=== PATIENT | male | born 1970 | race Caucasian/White ===

== ENCOUNTER 2016-09-17 17:52 | Emergency (ER) | payer BC ==
[2016-09-17] MEDS ORDERED: Albuterol 0.083% 2.5 MG/3 ML Neb Soln NEB ONE (18:55)
[2016-09-17] MEDS ORDERED: cloNIDine 0.1 MG Tab PO ONE (18:55)
[2016-09-17] MEDS ORDERED: predniSONE 20 MG Tab PO ONE (18:56)
--- NOTE | 2016-09-17 18:57 | EDM.PDOC ---
ED HPI GENERAL MEDICAL PROBLEM - General Chief Complaint: Respiratory Problem Stated Complaint: COUGH AND BLOOD PRESSURE Time Seen by Provider: 09/17/16 18:50 Source of Information: Reports: Patient History Limitations: Reports: No Limitations - History of Present Illness INITIAL COMMENTS - FREE TEXT/NARRATIVE: Patient is a 46-year-old male presents ED complaining of cough for the past 5 days. States cough is nonproductive with intermittent wheezing. Cough worsens with laying flat. He does have some mild shortness of breath. Denies any sinus congestion or sore throat. Denies recent sick exposure. States she's been under a lot more stress recently. 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 Has a history of hypertension and takes 3 different medications. He has been poor with taking these meds. Upon admission to the ED patient has elevated blood pressure. Patient takes Cardizem, lisinopril, and metoprolol. - Related Data Allergies Allergy/AdvReac Type Severity Reaction Status Date / Time No Known Allergies Allergy Verified 09/17/16 18:05 Home Meds: Home Meds Albuterol [IJD: Albuterol HFA] 1 puff .XX Q4HR PRN #8 gm 09/17/16 [Rx] Azithromycin [Zithromax] 250 mg PO DAILY #6 tablet 09/17/16 [Rx] Diltiazem HCl [Diltiazem ER] 360 mg PO DAILY 09/17/16 [History] Lisinopril 40 mg PO DAILY 09/17/16 [History] Metoprolol Succinate/HCTZ [Metoprolol ER-Hctz 100-12.5 mg] 100 mg PO DAILY 09/17 [History] Prednisone [IMW: predniSONE] 40 mg PO WITHBREAKFAST #10 tab 09/17/16 [Rx] Past Medical History Cardiovascular History: Reports: Hypertension Dermatologic History: Reports: Eczema - Past Surgical History GI Surgical History: Reports: Hernia Repair/Other Social & Family History - Family History Family Medical History: Noncontributory - Tobacco Use Smoking Status *Q: Never Smoker Second Hand Smoke Exposure: No - Alcohol Use Days Per Week of Alcohol Use: 2 Number of Drinks Per Day: 3 Total Drinks Per Week: 6 - Recreational Drug Use Recreational Drug Use: No - Living Situation & Occupation Living situation: Reports: Alone Occupation: Employed ED ROS GENERAL - Review of Systems Review Of Systems: See Below Constitutional: Reports: Malaise, Decreased Appetite. Denies: Fever, Chills HEENT: Reports: Rhinitis. Denies: Ear Pain, Throat Pain, Throat Swelling Respiratory: Reports: Shortness of Breath, Wheezing, Cough. Denies: Pleuritic Chest Pain, Sputum, Hemoptysis Cardiovascular: Denies: Chest Pain, Dyspnea on Exertion, Lightheadedness, Orthopnea, Palpitations, PND, Syncope GI/Abdominal: Denies: Abdominal Pain, Constipation, Diarrhea, Nausea, Vomiting : Reports: No Symptoms Musculoskeletal: Reports: No Symptoms Neurological: Reports: No Symptoms ED EXAM, GENERAL - Physical Exam Exam: See Below Exam Limited By: No Limitations General Appearance: Alert, WD/WN, No Apparent Distress Eye Exam: Bilateral Eye: PERRL Ears: Hearing Grossly Normal Nose: Normal Inspection Throat/Mouth: Normal Inspection, Normal Oropharynx, Normal Voice, No Airway Compromise Head: Atraumatic, Normocephalic Neck: Normal Inspection, Supple, Non-Tender, Full Range of Motion. No: Lymphadenopathy (L), Lymphadenopathy (R) Respiratory/Chest: No Respiratory Distress, No Accessory Muscle Use, Chest Non- Tender, Wheezing (Intermittent respiratory wheezes in all lung rubio. Rhonchi to the left lower lobe.) Cardiovascular: Normal Peripheral Pulses, Regular Rate, Rhythm, No Murmur Peripheral Pulses: 2+: Radial (R) GI/Abdominal: Normal Bowel Sounds, Soft, Non-Tender, No Organomegaly Back Exam: Normal Inspection Extremities: Normal Inspection, Normal Range of Motion, Non-Tender, No Pedal Edema, Normal Capillary Refill Neurological: Alert, Oriented, CN II-XII Intact, Normal Cognition, No Motor/ Sensory Deficits Psychiatric: Normal Affect, Normal Mood Skin Exam: Warm, Dry, Intact, Normal Color, No Rash Course - Vital Signs Last Recorded V/S: Last Vital Signs Temp 97.7 F 09/17/16 18:01 Pulse 102 H 09/17/16 20:46 Resp 20 09/17/16 18:01 BP 155/101 H 09/17/16 20:46 Pulse Ox 99 09/17/16 19:07 - Orders/Labs/Meds Labs: Laboratory Tests 09/17/16 09/17/16 Range/Units 19:15 19:15 WBC 12.18 H (4.23-9.07) K/mm3 RBC 5.00 (4.63-6.08) M/mm3 Hgb 13.5 L (13.7-17.5) gm/L Hct 40.6 (40.1-51.0) % MCV 81.2 (79.0-92.2) fl MCH 27.0 (25.7-32.2) pg MCHC 33.3 (32.2-35.5) g/dl RDW Std Deviation 46.8 H (35.1-43.9) fL Plt Count 249 (163-337) K/mm3 MPV 9.0 L (9.4-12.3) fl Neut % (Auto) 73.0 H (34.0-67.9) % Lymph % (Auto) 19.2 L (21.8-53.1) % Sebastian % (Auto) 6.9 (5.3-12.2) % Eos % (Auto) 0.5 L (0.8-7.0) Baso % (Auto) 0.2 (0.1-1.2) % Neut # (Auto) 8.88 H (1.78-5.38) K/mm3 Lymph # (Auto) 2.34 (1.32-3.57) K/mm3 Sebastian # (Auto) 0.84 H (0.30-0.82) K/mm3 Eos # (Auto) 0.06 (0.04-0.54) K/mm3 Baso # (Auto) 0.03 (0.01-0.08) K/mm3 Sodium 141 (136-145) mEq/L Potassium 3.8 (3.5-5.1) mEq/L Chloride 105 (98-107) mEq/L Carbon Dioxide 25 (21-32) mEq/L Anion Gap 14.8 (5-15) BUN 11 (7-18) mg/dL Creatinine 1.2 (0.7-1.3) mg/dL Est Cr Clr Drug Dosing 83.53 mL/min Estimated GFR (MDRD) > 60 (>60) mL/min BUN/Creatinine Ratio 9.2 L (14-18) Glucose 94 (74-106) mg/dL Calcium 8.7 (8.5-10.1) mg/dL Total Bilirubin 0.4 (0.2-1.0) mg/dL AST 13 L (15-37) U/L ALT 18 (16-63) U/L Alkaline Phosphatase 89 (46-116) U/L C-Reactive Protein 0.8 (<1.0) mg/dL Total Protein 7.3 (6.4-8.2) g/dl Albumin 3.2 L (3.4-5.0) g/dl Globulin 4.1 gm/dL Albumin/Globulin Ratio 0.8 L (1-2) Meds: Medications Discontinued Medications Generic Name Dose Route Start Last Admin Trade Name Lesly PRN Reason Stop Dose Admin Albuterol 2.5 mg 09/17/16 18:55 09/17/16 19:07 Proventil Neb Soln NEB 09/17/16 18:56 2.5 mg ONETIME ONE Administration Clonidine HCl 0.1 mg 09/17/16 18:55 09/17/16 19:13 Catapres PO 09/17/16 18:56 0.1 mg ONETIME ONE Administration Metoprolol Tartrate 50 mg 09/17/16 20:36 09/17/16 20:46 Lopressor PO 09/17/16 20:37 50 mg ONETIME ONE Administration Prednisone 40 mg 09/17/16 18:56 09/17/16 19:13 Prednisone PO 09/17/16 18:57 40 mg ONETIME ONE Administration - Re-Assessments/Exams Free Text/Narrative Re-Assessment/Exam: Ordered albuterol 2.5 mg neb treatment, clonidine 0.1 mg by mouth, and also prednisone 40 mg by mouth. Patient has most likely bronchitis. Will obtain basic labs including CBC, chem 14, CRP, also chest x-ray two-view. EKG sinus tachycardia at a rate of [address] changes noted. 09/17/16 20:34 Labs reviewed: White blood cell count 12.18, hemoglobin is 13.5, neutrophil percent is 73.0, neutrophil number is 8.88, potassium 3.8, sodium 141 , creatinine 1.2, and CRP 0.8. Reassessment, he states albuterol treatment did help with his coughing and wheezing. Blood pressures are slowly trending down 165/108. Patient takes Cardizem 360 mg by mouth daily, lisinopril 40 mg by mouth daily, and metoprolol succinate/HCTZ 100/12.5 mg by mouth daily. He has not taken these medications lately. 09/17/16 20:37 Ordered Lopressor 50 mg by mouth. 09/17/16 20:51 Blood pressure was 135 systolic. Patient is ready be discharged home. Will discharge patient with instructions as documented for bronchitis. Prescription for prednisone, albuterol inhaler, and also Z-Samir will be provided. Departure - Departure Time of Disposition: 20:51 Disposition: Home, Self-Care 01 Condition: Good Clinical Impression: Bronchitis Hypertension Qualifiers: Hypertension type: unspecified Qualified Code(s): I10 - Essential (primary) hypertension - Discharge Information Prescriptions: Albuterol [IJD: Albuterol HFA] 1 puff .XX Q4HR PRN #8 gm PRN Reason: Cough Azithromycin [Zithromax] 250 mg PO DAILY #6 tablet Prednisone [IMW: predniSONE] 40 mg PO WITHBREAKFAST #10 tab Instructions: Acute Bronchitis, [id number] Referrals: Gifty Guzmán, RELATIONS SPECIALIST [Primary Care Provider] - Forms: ED Department Discharge Additional Instructions: You have bronchitis and thus we'll treat you with albuterol inhaler, 1 puff every 4 hours as needed for shortness of breath and cough. Prednisone 40 mg every a.m. for 5 days. Z-Samir 2 tabs by mouth for first dose and then one tab every day thereafter. Push the fluids. Ensure adequate rest. In addition continue taking all your hypertension medications as prescribed. Blood pressure was quite elevated this evening with admission to the ED. You have to take these medications daily. Follow-up with your PCP in the next week to ensure resolution of cough and control of your blood pressure. Return to the ED as needed for any new or worsening symptoms.
[2016-09-17] MEDS ORDERED: Metoprolol Tartrate 50 MG Tab PO ONE (20:36)
[2016-09-17 20:46] VITALS: BP 155/101
--- NOTE | 2016-09-18 07:13 | CR ---
Chest: Two views of the chest were obtained. Comparison: No previous chest x-ray. Heart size is within normal limits. Tortuous thoracic aorta is seen. Lungs are clear. Bony structures are within normal limits for the patient's age. Impression: 1. Incidental findings. Nothing acute is appreciated on two-view chest x-ray. Diagnostic code #2
== END 2016-09-17 21:05 | disposition home or self-care (01) ==
LOC: JD.ED 17:52
DX: J40 Bronchitis, not specified as acute or chronic (principal); I10 Essential (primary) hypertension; Z98.890 Other specified postprocedural states; Z79.2 Long term (current) use of antibiotics; Z79.899 Other long term (current) drug therapy
CPT/HCPCS: 36415; 71020; 80053; 85025; 86140; 93005; 94664; 99284; A9270; 99283

== ENCOUNTER 2016-11-16 08:42 | Emergency (ER) | payer BC ==
[2016-11-16] MEDS ORDERED: Sodium Chloride 0.9% 10 ML Syringe FLUSH PRN (08:59)
[2016-11-16] MEDS ORDERED: Aspirin 81 MG Tab.Chew PO ONE (09:06)
[2016-11-16] MEDS ORDERED: Nitroglycerin 2% Oint 1 GM UD Packet TOP ONE (09:06)
[2016-11-16 09:40] VITALS: BP 114/69
[2016-11-16] MEDS ORDERED: Acetaminophen 325 MG Tab PO ONE (09:42)
--- NOTE | 2016-11-16 10:37 | EDM.PDOC ---
ED HPI GENERAL MEDICAL PROBLEM - General Chief Complaint: Chest Pain Stated Complaint: HEART PROBLEMS Time Seen by Provider: 11/16/16 08:53 Source of Information: Reports: Patient, RN Notes Reviewed - History of Present Illness INITIAL COMMENTS - FREE TEXT/NARRATIVE: 46-year-old male comes in with dyspnea, chest discomfort. She had onset of shortness of breath yesterday morning. This was especially apparent with any type of exertion. He does have history of hypertension on medication for that. He has no known history for coronary artery disease. He is not diabetic. However he is seriously overweight with a current weight of well over 50% above ideal body weight. 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 He states he has been working trying to lose weight for quite some time. He did lose about 40-50 pounds but now seems plateaued and stuck at his current weight. he does not smoke. He states his cholesterol has been fine. However he has strong family history for heart disease. With The onset of difficulty breathing yesterday and associated discomfort that does have him appropriately concerned. Chest Pain Score (Numeric/FACES): 4 Headache Pain Score (Numeric/FACES): 4 - Related Data Allergies Allergy/AdvReac Type Severity Reaction Status Date / Time No Known Allergies Allergy Verified 11/16/16 08:54 Home Meds: Home Meds Diltiazem HCl [Diltiazem ER] 360 mg PO DAILY 09/17/16 [History] Lisinopril 40 mg PO DAILY 09/17/16 [History] Metoprolol Succinate/HCTZ [Metoprolol ER-Hctz 100-12.5 mg] 100 mg PO DAILY 09/17 [History] Hydrochlorothiazide 25 mg PO DAILY #30 tablet 11/16/16 [Rx] Past Medical History Cardiovascular History: Reports: Hypertension Dermatologic History: Reports: Eczema - Past Surgical History GI Surgical History: Reports: Hernia Repair/Other Social & Family History - Family History Family Medical History: Noncontributory - Tobacco Use Smoking Status *Q: Never Smoker Second Hand Smoke Exposure: No - Caffeine Use Caffeine Use: Reports: None - Alcohol Use Days Per Week of Alcohol Use: 2 Number of Drinks Per Day: 3 Total Drinks Per Week: 6 - Recreational Drug Use Recreational Drug Use: No - Living Situation & Occupation Living situation: Reports: Alone Occupation: Employed ED ROS GENERAL - Review of Systems Review Of Systems: See Below Constitutional: Denies: Fever, Chills, Diaphoresis HEENT: Denies: Throat Pain Respiratory: Reports: Shortness of Breath. Denies: Wheezing, Cough Cardiovascular: Reports: Chest Pain (anterior chest discomfort without radiation ) GI/Abdominal: Denies: Abdominal Pain, Nausea, Vomiting Skin: Reports: No Symptoms Neurological: Reports: No Symptoms ED EXAM, GENERAL - Physical Exam Exam: See Below General Appearance: Alert, No Apparent Distress Throat/Mouth: Normal Inspection, Normal Oropharynx Neck: Supple, Full Range of Motion Respiratory/Chest: No Respiratory Distress, Lungs Clear, Normal Breath Sounds Cardiovascular: Regular Rate, Rhythm GI/Abdominal: Soft, Non-Tender Extremities: No: Pedal Edema, Leg Pain Neurological: Alert, Oriented, No Motor/Sensory Deficits Skin Exam: Warm, Dry, Intact, Normal Color EKG INTERPRETATION EKG Date: 11/16/16 Rhythm: A-Fib Rate (Beats/Min): 59 [place]: Normal QRS: Normal ST-T: Normal Course - Vital Signs Last Recorded V/S: Last Vital Signs Temp 96.0 F 11/16/16 08:50 Pulse 50 L 11/16/16 09:39 Resp 16 11/16/16 09:39 BP 114/69 11/16/16 09:39 Pulse Ox 95 11/16/16 09:39 - Orders/Labs/Meds Orders: Active Orders 24 hr Category Date Time Status EKG 12 Lead [EKG Documentation Completion] [RC] STAT Care 11/16/16 09:00 Active EKG 12 Lead [EKG Documentation Completion] [RC] STAT Care 11/16/16 12:16 Active Peripheral IV Care [RC] . DIRECTED Care 11/16/16 09:00 Active Chest 1V Frontal [CR] Stat Exams 11/16/16 09:00 Taken Sodium Chloride 0.9% [Saline Flush] Med 11/16/16 08:59 Active 10 ml FLUSH ASDIRECTED PRN Peripheral IV Insertion Adult [OM.PC] Stat Oth 11/16/16 09:00 Ordered Medication Orders Sodium Chloride (Saline Flush) 10 ml FLUSH ASDIRECTED PRN PRN Reason: Keep Vein Open Last Admin: 11/16/16 09:40 Dose: 10 ml Labs: Laboratory Tests 11/16/16 11/16/16 11/16/16 Range/Units 08:54 08:54 08:54 WBC 13.79 H (4.23-9.07) K/mm3 RBC 5.33 (4.63-6.08) M/mm3 Hgb 14.2 (13.7-17.5) gm/L Hct 43.9 (40.1-51.0) % MCV 82.4 (79.0-92.2) fl MCH 26.6 (25.7-32.2) pg MCHC 32.3 (32.2-35.5) g/dl RDW Std Deviation 51.5 H (35.1-43.9) fL Plt Count 300 (163-337) K/mm3 MPV 9.7 (9.4-12.3) fl Neutrophils % (Manual) 70 H (40-60) % Band Neutrophils % 0 (0-10) % Lymphocytes % (Manual) 28 (20-40) % Atypical Lymphs % 0 % Monocytes % (Manual) 2 (2-10) % Eosinophils % (Manual) 0 L (0.8-7.0) % Basophils % (Manual) 0 L (0.2-1.2) Platelet Estimate Adequate RBC Morph Comment Normal PT 9.8 (8.0-13.0) SECONDS INR 0.90 D-Dimer, Quantitative 0.30 (0.19-0.59) mg/L Sodium 143 (136-145) mEq/L Potassium 3.8 (3.5-5.1) mEq/L Chloride 108 H (98-107) mEq/L Carbon Dioxide 24 (21-32) mEq/L Anion Gap 14.8 (5-15) BUN 26 H (7-18) mg/dL Creatinine 1.5 H (0.7-1.3) mg/dL Est Cr Clr Drug Dosing TNP Estimated GFR (MDRD) 50 (>60) mL/min BUN/Creatinine Ratio 17.3 (14-18) Glucose 127 H (74-106) mg/dL Calcium 8.7 (8.5-10.1) mg/dL Total Bilirubin 0.5 (0.2-1.0) mg/dL AST 48 H (15-37) U/L ALT 60 (16-63) U/L Alkaline Phosphatase 90 (46-116) U/L Troponin I 0.089 H* (0.00-0.056) ng/mL NT-Pro-B Natriuret Pep (0-125) pg/mL Total Protein 7.3 (6.4-8.2) g/dl Albumin 3.3 L (3.4-5.0) g/dl Globulin 4.0 gm/dL Albumin/Globulin Ratio 0.8 L (1-2) 11/16/16 11/16/16 Range/Units 08:54 11:55 WBC (4.23-9.07) K/mm3 RBC (4.63-6.08) M/mm3 Hgb (13.7-17.5) gm/L Hct (40.1-51.0) % MCV (79.0-92.2) fl MCH (25.7-32.2) pg MCHC (32.2-35.5) g/dl RDW Std Deviation (35.1-43.9) fL Plt Count (163-337) K/mm3 MPV (9.4-12.3) fl Neutrophils % (Manual) (40-60) % Band Neutrophils % (0-10) % Lymphocytes % (Manual) (20-40) % Atypical Lymphs % % Monocytes % (Manual) (2-10) % Eosinophils % (Manual) (0.8-7.0) % Basophils % (Manual) (0.2-1.2) Platelet Estimate RBC Morph Comment PT (8.0-13.0) SECONDS INR D-Dimer, Quantitative (0.19-0.59) mg/L Sodium (136-145) mEq/L Potassium (3.5-5.1) mEq/L Chloride (98-107) mEq/L Carbon Dioxide (21-32) mEq/L Anion Gap (5-15) BUN (7-18) mg/dL Creatinine (0.7-1.3) mg/dL Est Cr Clr Drug Dosing Estimated GFR (MDRD) (>60) mL/min BUN/Creatinine Ratio (14-18) Glucose (74-106) mg/dL Calcium (8.5-10.1) mg/dL Total Bilirubin (0.2-1.0) mg/dL AST (15-37) U/L ALT (16-63) U/L Alkaline Phosphatase (46-116) U/L Troponin I 0.068 H* (0.00-0.056) ng/mL NT-Pro-B Natriuret Pep 2532 H (0-125) pg/mL Total Protein (6.4-8.2) g/dl Albumin (3.4-5.0) g/dl Globulin gm/dL Albumin/Globulin Ratio (1-2) Meds: Medications Generic Name Dose Route Start Last Admin Trade Name Freq PRN Reason Stop Dose Admin Sodium Chloride 10 ml 11/16/16 08:59 11/16/16 09:40 Saline Flush FLUSH 10 ml ASDIRECTED PRN Administration Keep Vein Open Discontinued Medications Generic Name Dose Route Start Last Admin Trade Name Freq PRN Reason Stop Dose Admin Acetaminophen 975 mg 11/16/16 09:42 11/16/16 09:57 Tylenol PO 11/16/16 09:43 975 mg NOW ONE Administration Aspirin 324 mg 11/16/16 09:06 11/16/16 09:14 Aspirin PO 11/16/16 09:07 324 mg ONETIME ONE Administration Furosemide 40 mg 11/16/16 10:50 11/16/16 10:56 Lasix PO 11/16/16 10:51 40 mg ONETIME ONE Administration Nitroglycerin 1 gm 11/16/16 09:06 11/16/16 09:16 Nitro-Bid 2% TOP 11/16/16 09:07 1 gm ONETIME ONE Administration - Re-Assessments/Exams Free Text/Narrative Re-Assessment/Exam: 11/16/16 14:01 initial troponin came back very slightly elevated at 0.089. Therefore it was decided to be in his best interest to do a repeat 3 hour troponin. That came back at 0.068. Of interest while waiting for the time to repeat the second troponin he did convert to a sinus rhythm. Been running sinus bradycardia around 50/m with no further evidence for atrial fibrillation. Chest x-ray does show mild cardiomegaly, mild pulmonary congestion. BNP was elevated. He was given Lasix 40 mg by mouth. His med list in the computer showed that he had previously been on metoprolol linked with hydrochlorothiazide. However when he shows me his medication bottles today neither his lisinopril or metoprolol are linked to hydrochlorothiazide. I will Start him on hydrochlorothiazide 25 mg daily. An order for cardiac ultrasound has been written. I have discussed with him the need to work even harder atlosing weight which will involve much more strict diet from a calorie standpoint and also type of food when he is eating standpoint. Discussed with him the need to gradually up his exercise to help burn some calories. I have also discussed the need with him to see a Podopediatrician as soon as possible. discharge instr. as documented. Departure - Departure Time of Disposition: 13:44 Disposition: Home, Self-Care 01 Condition: Fair Clinical Impression: Atypical chest pain Congestive heart failure Qualifiers: Congestive heart failure type: combined Congestive heart failure chronicity: acute Qualified Code(s): I50.41 - Acute combined systolic (congestive) and diastolic (congestive) heart failure Prescriptions: Hydrochlorothiazide 25 mg PO DAILY #30 tablet Instructions: Nonspecific Chest Pain, Heart Failure, [id number] Referrals: Gifty Guzmán, LPN [Primary Care Provider] - Forms: ED Department Discharge Additional Instructions: start hydrochlorothiazide 25 mg daily which should help relieve the fluid congestion on your lungs. avoid salty foods. 2 baby aspirin daily to help reduce your cardiac risk, healthy low-calorie diet. Avoid the flour and sugar foods as discussed. Eat more fruit and vegetables. Also consider researching the Mediterranean diet. That has been shown to have some significant cardiac health-related benefits. echocardiogram to be done at our radiology department here at the hospital. An order has been submitted to the radiology department. They will call you tomorrow morning with the time. Follow-up with Ema Guzmán at the clinic once the echocardiogram has been done. Call for appt.tomorrow AM. It is strongly recommend that Ema Guzmán and her staff work at getting you referred to see a Podopediatrician for further evaluation, treatment as needed. Return to ED if symptoms worsening in any way. - My Orders Last 24 Hours: My Active Orders 11/16/16 08:59 Sodium Chloride 0.9% [Saline Flush] 10 ml FLUSH ASDIRECTED PRN 11/16/16 09:00 EKG 12 Lead [EKG Documentation Completion] [RC] STAT Peripheral IV Care [RC] . DIRECTED Chest 1V Frontal [CR] Stat Peripheral IV Insertion Adult [OM.PC] Stat 11/16/16 12:16 EKG 12 Lead [EKG Documentation Completion] [RC] STAT - Assessment/Plan Last 24 Hours: My Active Orders 11/16/16 08:59 Sodium Chloride 0.9% [Saline Flush] 10 ml FLUSH ASDIRECTED PRN 11/16/16 09:00 EKG 12 Lead [EKG Documentation Completion] [RC] STAT Peripheral IV Care [RC] . DIRECTED Chest 1V Frontal [CR] Stat Peripheral IV Insertion Adult [OM.PC] Stat 11/16/16 12:16 EKG 12 Lead [EKG Documentation Completion] [RC] STAT
[2016-11-16] MEDS ORDERED: Furosemide 40 MG Tab PO ONE (10:50)
--- NOTE | 2016-11-17 12:50 | CR ---
Chest: Portable view of the chest was obtained. Comparison: Prior chest x-ray of 09/17/16. Heart size and mediastinum are within normal limits for portable technique. Lungs are clear. Bony structures are grossly intact. Impression: 1. Nothing acute is identified on portable chest x-ray. Diagnostic code #1
== END 2016-11-16 13:55 | disposition home or self-care (01) ==
LOC: JD.ED 08:42
DX: I11.0 Hypertensive heart disease with heart failure (principal); I50.41 Acute combined systolic (congestive) and diastolic (congestive) heart failure; Z79.899 Other long term (current) drug therapy
CPT/HCPCS: 36415; 71010; 80053; 83880; 84484; 85025; 85379; 85610; 93005; 99285; A9270; J7050; 93010

== ENCOUNTER 2018-05-15 19:03 | Emergency (ER) | payer SELFPAY ==
[2018-05-15 19:26] VITALS: BP 104/69
[2018-05-15] MEDS ORDERED: Diltiazem 50 MG/10 ML SDV IVPUSH ONE (20:51)
[2018-05-15] MEDS ORDERED: Diltiazem 125 MG in Sodium Chloride 0.9% 100 ML IV SCH (21:00)
[2018-05-15] MEDS ORDERED: Sodium Chloride 0.9% 1,000 ML IV ONE (21:42)
[2018-05-15] MEDS ORDERED: Rivaroxaban 10 MG Tab PO STA (21:45)
--- NOTE | 2018-05-15 22:03 | EDM.PDOC ---
ED HPI GENERAL MEDICAL PROBLEM - General Chief Complaint: Respiratory Problem Stated Complaint: SOLID STOMACH COLD SOB Time Seen by Provider: 05/15/18 20:53 Source of Information: Reports: Patient, RN Notes Reviewed History Limitations: Reports: No Limitations - History of Present Illness INITIAL COMMENTS - FREE TEXT/NARRATIVE: The patient states that he developed a dry cough about 2 weeks ago, then developed left rib pain, presumably due to the coughing, about 3-4 days ago. The pain has since resolved, however, the patient also reports dyspnea when supine for the past 3-4 days. He states that his dyspnea resolves if he is upright or if he is walking, however, he developed lightheadedness when he is upright, today. He denies having any chest pain or palpitations. No recent fever. No prior similar symptoms. The patient states that he has a history of recreational drug abuse, but states that he cannot use recreational drugs because the [employer] drug test all the time. He states that he is currently between jobs, however, with a new job scheduled to start sometime in May, and because of this, he acknowledges that he smoked some marijuana 3-4 days ago, and snorted some methamphetamine this morning. The last time that he used methamphetamine was about 4 years ago. In addition, the patient admits that he is a heavy daily drinker. Here in the ED, the patient is found to be tachycardic at around 150 bpm, and his surveillance monitor indicates that he is in atrial fibrillation. The patient reports no prior history of atrial fibrillation. As above, he is unable to sense his own heartbeat. He has a history of hypertension, for which he ordinarily takes both Toprol-XL and lisinopril, however, he reports that he forgot to take his blood pressure medicines today. The patient's PCP is Tash George. The patient sees Dr. Carpenter for evaluation of iron deficiency. Abdomen Pain Score (Numeric/FACES): 4 - Related Data Allergies Allergy/AdvReac Type Severity Reaction Status Date / Time No Known Allergies Allergy Verified 05/15/18 19:20 Home Meds: Home Meds Lisinopril 40 mg PO DAILY 09/17/16 [History] Metoprolol Succinate/HCTZ [Metoprolol ER-Hctz 100-12.5 mg] 100 mg PO DAILY 09/17 [History] Allopurinol [Zyloprim] 300 mg PO DAILY 01/04/18 [History] Iron,Carbonyl [Ferretts] 1 tab PO DAILY 01/04/18 [History] Rivaroxaban [Xarelto] 20 mg PO QPM 30 Days #60 tablet 05/15/18 [Rx] Past Medical History HEENT History: Reports: Other (See Below) (Vertigo) Cardiovascular History: Reports: Afib, Hypertension Musculoskeletal History: Reports: Gout (suspected, not confirmed) Psychiatric History: Reports: Addiction (alcohol, methamphetamine) Endocrine/Metabolic History: Reports: Obesity/BMI 30+ (BMI over 50) Hematologic History: Reports: Iron Deficiency Dermatologic History: Reports: Eczema - Past Surgical History GI Surgical History: Reports: Hernia, Abdominal (ventral) Social & Family History - Family History Family Medical History: Noncontributory - Tobacco Use Smoking Status *Q: Never Smoker - Caffeine Use Caffeine Use: Reports: Coffee - Alcohol Use Alcohol Use History: Yes Days Per Week of Alcohol Use: 7 Number of Drinks Per Day: 12 Total Drinks Per Week: 84 Alcohol Use Frequency: Daily - Recreational Drug Use Recreational Drug Use: Yes Drug Use in Last 12 Months: Yes Recreational Drug Type: Reports: Marijuana/Hashish (smokes on occasion), Methamphetamine (1st used 1999. Last snorted 05/16/2018) - Living Situation & Occupation Living situation: Reports: , Alone Occupation: Unemployed ED ROS GENERAL - Review of Systems Review Of Systems: ROS reveals no pertinent complaints other than HPI. ED EXAM, GENERAL - Physical Exam Exam: See Below Exam Limited By: No Limitations General Appearance: Alert, WD/WN, No Apparent Distress Eye Exam: Bilateral Eye: EOMI, Normal Inspection Ears: Normal External Exam, Hearing Grossly Normal Nose: Normal Inspection Throat/Mouth: Normal Inspection, Normal Lips, Normal Voice, No Airway Compromise Head: Atraumatic, Normocephalic Neck: Normal Inspection, Full Range of Motion Respiratory/Chest: No Respiratory Distress, Lungs Clear, Normal Breath Sounds, No Accessory Muscle Use Cardiovascular: Normal Peripheral Pulses, No Gallop, No JVD, No Murmur, No Rub, Tachycardia, Irregularly Irregular Peripheral Pulses: 4+: Radial (L), Radial (R) GI/Abdominal: Normal Bowel Sounds, Soft, Non-Tender, No Organomegaly, No Distention, No Abnormal Bruit, No Mass, Other (Obese) (Male) Exam: Deferred Rectal (Males) Exam: Deferred Back Exam: Normal Inspection, Full Range of Motion, NT Extremities: Normal Inspection, Normal Range of Motion, Normal Capillary Refill , Other (2-3+ pitting pretibial edema bilaterally) Neurological: Alert, Oriented, Normal Cognition, No Motor/Sensory Deficits Psychiatric: Normal Affect Skin Exam: Warm, Dry, Intact, Normal Color, No Rash EKG INTERPRETATION EKG Date: 05/15/18 Time: 19:34 Rhythm: A-Fib Rate (Beats/Min): 137 [place]: Normal P-Wave: Absent QRS: Normal ST-T: Normal QT: Prolonged (QTc 533 ms) Comparison: Change From Previous EKG (NSR on 01/04/2018) Course - Vital Signs Last Recorded V/S: Last Vital Signs Temp 35.1 C L 05/15/18 19:20 Pulse 150 H 05/15/18 19:20 Resp 17 05/15/18 19:20 BP 104/69 05/15/18 19:20 Pulse Ox 97 05/15/18 19:20 - Orders/Labs/Meds Orders: Active Orders 24 hr Category Date Time Status EKG 12 Lead [EKG Documentation Completion] [RC] STAT Care 05/15/18 20:12 Active Labs: Laboratory Tests 05/15/18 05/15/18 05/15/18 Range/Units 19:35 19:35 19:35 WBC 10.68 H (4.23-9.07) K/mm3 RBC 4.61 L (4.63-6.08) M/mm3 Hgb 12.0 L (13.7-17.5) gm/L Hct 36.9 L (40.1-51.0) % MCV 80.0 (79.0-92.2) fl MCH 26.0 (25.7-32.2) pg MCHC 32.5 (32.2-35.5) g/dl RDW Std Deviation 49.8 H (35.1-43.9) fL Plt Count 302 (163-337) K/mm3 MPV 10.2 (9.4-12.3) fl Neut % (Auto) 71.1 H (34.0-67.9) % Lymph % (Auto) 17.9 L (21.8-53.1) % [place] % (Auto) 9.6 (5.3-12.2) % Eos % (Auto) 0.7 L (0.8-7.0) Baso % (Auto) 0.4 (0.1-1.2) % Neut # (Auto) 7.60 H (1.78-5.38) K/mm3 Lymph # (Auto) 1.91 (1.32-3.57) K/mm3 [place] # (Auto) 1.02 H (0.30-0.82) K/mm3 Eos # (Auto) 0.08 (0.04-0.54) K/mm3 Baso # (Auto) 0.04 (0.01-0.08) K/mm3 Manual Slide Review Abnormal smear Sodium 141 (136-145) mEq/L Potassium 4.1 (3.5-5.1) mEq/L Chloride 110 H (98-107) mEq/L Carbon Dioxide 17 L (21-32) mEq/L Anion Gap 18.1 H (5-15) BUN 53 H (7-18) mg/dL Creatinine 2.4 H (0.7-1.3) mg/dL Est Cr Clr Drug Dosing 41.31 mL/min Estimated GFR (MDRD) 29 (>60) mL/min BUN/Creatinine Ratio 22.1 H (14-18) Glucose 99 (74-106) mg/dL Calcium 8.8 (8.5-10.1) mg/dL Magnesium 2.2 (1.8-2.4) mg/dl Total Bilirubin 0.9 (0.2-1.0) mg/dL AST 84 H (15-37) U/L ALT 136 H (16-63) U/L Alkaline Phosphatase 119 H (46-116) U/L Troponin I 0.023 (0.00-0.056) ng/mL Total Protein 7.3 (6.4-8.2) g/dl Albumin 3.3 L (3.4-5.0) g/dl Globulin 4.0 gm/dL Albumin/Globulin Ratio 0.8 L (1-2) Meds: Medications Discontinued Medications Generic Name Dose Route Start Last Admin Trade Name Freq PRN Reason Stop Dose Admin Diltiazem HCl 5 mg 05/15/18 20:51 05/15/18 21:02 Cardizem IVPUSH 05/15/18 20:52 5 mg ONETIME ONE Administration Diltiazem HCl 125 mg/ Sodium 125 mls @ 10 mls/hr 05/15/18 21:00 05/15/18 21: 02 Chloride IV 10 mg/hr TITRATE RAVINDER 10 mls/hr Administration Protocol 10 MG/HR Sodium Chloride 1,000 mls @ 999 mls/hr 05/15/18 21:42 05/15/18 21:52 Normal Saline IV 05/15/18 22:42 999 mls/hr ONETIME ONE Administration Rivaroxaban 20 mg 05/15/18 21:45 05/15/18 23:38 Xarelto PO 05/15/18 21:46 20 mg ONETIME STA Administration - Re-Assessments/Exams Free Text/Narrative Re-Assessment/Exam: 05/15/18 21:43 The patient's ECG finds the patient to be in atrial fibrillation with RVR. A- fib has been added to his PMHx. 05/15/18 22:03 Diltiazem IVP and drip was ordered earlier. The patient has informed me that he is not willing to be admitted to the hospital. I will start the patient on oral Xarelto. 05/15/18 23:25 The patient's CMP is concerning for a bicarbonate depressed at 17 with an anion gap of 18.1. The patient's BUN/Cr are elevated at 53/2.4. They were 17/1.3 on , indicating that his renal insufficiency is acute. The remainder of the patient's workup is unremarkable. 05/15/18 23:36 Test results discussed with the patient. The patient is still in atrial fibrillation. I am unable to predict how much rate control medication he will need, since his elevated rate may be due, at least in part, to the methamphetamine that he took, as well as his not taking his usual blood pressure medications, which includes Toprol-XL. The patient is still insisting on going home tonight. Because of his acidosis, renal failure, and continued atrial fibrillation with RVR, the patient will have to leave FIVE POINTS. I will submit a prescription for Xarelto, and have the patient resume his usual BP medications. I would like him to follow-up with his PCP as soon as possible. The patient was advised that if he changes his mind and is willing to be admitted to the hospital, that he should return to the ED. He said he would - on 05/18/2018. Departure - Departure Time of Disposition: 23:38 Disposition: Against Medical Advice 07 Condition: Fair Clinical Impression: New onset atrial fibrillation, High anion gap metabolic acidosis, Acute kidney injury, Methamphetamine abuse Prescriptions: Rivaroxaban [Xarelto] 20 mg PO QPM 30 Days #60 tablet Referrals: Tash George MD [Primary Care Provider] - Forms: ED Department Discharge Additional Instructions: You were seen in the emergency room for shortness of breath when lying down for the past 3-4 days, and lightheadedness when you stand today. Workup in the ER included blood work and an ECG. Your workup found you to be in atrial fibrillation with a rapid ventricular response, your kidney function was found to be impaired, and you were found to be acidotic. You were treated with the heart rate controlling medicines diltiazem in the ER. You have been started on the blood thinner Xarelto. Admission to the hospital was recommended, but declined. You have elected to leave AGAINST MEDICAL ADVICE. You should stay well hydrated. You should resume your usual blood pressure medications. A prescription for Xarelto has been sent to the [facility], located in the [employer] [place]. Take one tablet of Xarelto every evening, with food, as prescribed. Follow-up with your PCP, Tash George, at the next available appointment. If you change your mind and are willing to be admitted, please do not hesitate to return to the ER. - My Orders Last 24 Hours: My Active Orders 05/15/18 20:12 EKG 12 Lead [EKG Documentation Completion] [RC] STAT - Assessment/Plan Last 24 Hours: My Active Orders 05/15/18 20:12 EKG 12 Lead [EKG Documentation Completion] [RC] STAT
== END 2018-05-16 00:04 | disposition left against medical advice (07) ==
LOC: JD.ED 19:03
DX: I48.91 Unspecified atrial fibrillation (principal); N17.9 Acute kidney failure, unspecified; I10 Essential (primary) hypertension; F15.10 Other stimulant abuse, uncomplicated; E87.2 Acidosis; Z79.899 Other long term (current) drug therapy
CPT/HCPCS: 36415; 80053; 83735; 84484; 85025; 93005; 96365; 96366; 96376; 99285; A9270; J3490; J7030; J7040; 93010

== ENCOUNTER 2018-05-21 10:07 | Inpatient (IN) | payer BC, MEDICAID ==
[2018-05-21] MEDS ORDERED: Diltiazem 50 MG/10 ML SDV IVPUSH ONE ×4 (10:35→13:11)
[2018-05-21] MEDS ORDERED: Sodium Chloride 0.9% 1,000 ML ONE (10:38)
[2018-05-21] MEDS: Sodium Chloride 0.9% 10 ML Syringe FLUSH PRN ×2 (10:40→13:36)
--- NOTE | 2018-05-21 11:02 | CR ---
Chest: Frontal view of the chest was obtained. Comparison: Prior chest x-ray of 01/04/13. Heart is enlarged which is more prominent than on prior exam. Pulmonary vessels are congested. Bony structures are grossly intact. Impression: 1. Findings suspicious for CHF. Diagnostic code #3
--- NOTE | 2018-05-21 11:13 | EDM.PDOC ---
ED HPI GENERAL MEDICAL PROBLEM - General Chief Complaint: Chest Pain Stated Complaint: AFIB /SOB Time Seen by Provider: 05/21/18 10:26 Source of Information: Reports: Patient, RN Notes Reviewed - History of Present Illness INITIAL COMMENTS - FREE TEXT/NARRATIVE: 47-year-old male who's been having symptoms of anterior chest discomfort, short of breath, weak, tired dizzy for about 2 weeks. The dizziness is worse this morning and that is what brings him back to the ED. He was here in the ED about 5 days ago for similar symptoms, diagnosed with [place] RVMoi. See that record for details. Admission was recommended, he refused and signed out AMA. Was prescribed surrounding told in addition to his other medication but we are informed he has not started taking it. - Related Data Allergies Allergy/AdvReac Type Severity Reaction Status Date / Time No Known Allergies Allergy Verified 05/21/18 10:18 Home Meds: Home Meds Lisinopril 40 mg PO DAILY 09/17/16 [History] Metoprolol Succinate/HCTZ [Metoprolol ER-Hctz 100-12.5 mg] 100 mg PO DAILY 09/17 [History] Allopurinol [Zyloprim] 300 mg PO DAILY 01/04/18 [History] Iron,Carbonyl [Ferretts] 1 tab PO DAILY 01/04/18 [History] Past Medical History HEENT History: Reports: Other (See Below) Cardiovascular History: Reports: Afib, Hypertension Gastrointestinal History: Reports: Other (See Below) Other Gastrointestinal History: hernia repair 2013 Musculoskeletal History: Reports: Gout Psychiatric History: Reports: Addiction Endocrine/Metabolic History: Reports: Obesity/BMI 30+ Hematologic History: Reports: Iron Deficiency Dermatologic History: Reports: Eczema - Past Surgical History GI Surgical History: Reports: Hernia, Abdominal Social & Family History - Family History Family Medical History: Noncontributory - Caffeine Use Caffeine Use: Reports: Coffee - Living Situation & Occupation Living situation: Reports: , Alone Occupation: Unemployed ED ROS GENERAL - Review of Systems Review Of Systems: See Below Constitutional: Denies: Fever, Chills, Diaphoresis HEENT: Reports: No Symptoms Respiratory: Reports: Shortness of Breath. Denies: Pleuritic Chest Pain Cardiovascular: Reports: Chest Pain (Chest feels "heavy and tight") Endocrine: Reports: Fatigue GI/Abdominal: Denies: Abdominal Pain, Nausea, Vomiting Musculoskeletal: Reports: Shoulder Pain. Denies: Neck Pain Skin: Reports: No Symptoms (Mild bilateral) Neurological: Reports: Dizziness ED EXAM, GENERAL - Physical Exam Exam: See Below General Appearance: Alert, Mild Distress Throat/Mouth: Normal Inspection Head: Atraumatic Neck: Supple, Full Range of Motion Respiratory/Chest: Lungs Clear, Respiratory Distress (Moderate tachypnea). No: Rhonchi, Wheezing Cardiovascular: Tachycardia, Irregularly Irregular GI/Abdominal: Soft, Non-Tender Extremities: Pedal Edema. No: Leg Pain (Mild bilateral), Increased Warmth, Redness Neurological: Alert, Oriented, No Motor/Sensory Deficits Skin Exam: Warm, Dry, Normal Color EKG INTERPRETATION EKG Date: 05/21/18 Rhythm: A-Fib Rate (Beats/Min): 162 [place]: Normal P-Wave: Present QRS: Normal ST-T: Other (Mild diffuse nonspecific ST changes) Course - Vital Signs Last Recorded V/S: Last Vital Signs Temp 98.5 F 05/21/18 13:39 Pulse 127 H 05/21/18 15:00 Resp 20 05/21/18 13:39 BP 183/123 H 05/21/18 15:00 Pulse Ox 97 05/21/18 13:39 - Orders/Labs/Meds Orders: Active Orders 24 hr Category Date Time Status Admission Status [Patient Status] [ADT] Routine ADT 05/21/18 13:10 Active EKG 12 Lead [EKG Documentation Completion] [RC] STAT Care 05/21/18 10:33 Active Diltiazem 125 mg Med 05/21/18 12:45 Active Sodium Chloride 0.9% [Normal Saline] 100 ml IV TITRATE Sodium Chloride 0.9% [Saline Flush] Med 05/21/18 10:32 Active 10 ml FLUSH ASDIRECTED PRN Peripheral IV Insertion Adult [OM.PC] Stat Oth 05/21/18 10:33 Ordered Medication Orders Allopurinol (Zyloprim) 300 mg PO DAILY RAVINDER Enoxaparin Sodium (Lovenox) 168 mg SUBCUT Q12H RAVINDER Diltiazem HCl 125 mg/ Sodium (Chloride) 125 mls @ 5 mls/hr IV TITRATE RAVINDER; Protocol Last Titration: 05/21/18 15:05 Dose: 7 mg/hr, 7 mls/hr Titration: 05/21/18 14:57 Dose: 6 mg/hr, 6 mls/hr Admin: 05/21/18 13:39 Dose: 5 mg/hr, 5 mls/hr Metoprolol Tartrate (Lopressor) 100 mg PO Q12HR RAVINDER Ondansetron HCl (Zofran Odt) 4 mg PO Q4H PRN PRN Reason: nausea, able to take PO Ondansetron HCl (Zofran) 4 mg IV Q4H PRN PRN Reason: Nausea/Vomiting Sodium Chloride (Saline Flush) 10 ml FLUSH ASDIRECTED PRN PRN Reason: Keep Vein Open Last Admin: 05/21/18 13:36 Dose: 10 ml Admin: 05/21/18 10:40 Dose: 10 ml Labs: Laboratory Tests 05/21/18 05/21/18 05/21/18 Range/Units 10:30 10:30 10:30 WBC 8.36 (4.23-9.07) K/mm3 RBC 4.75 (4.63-6.08) M/mm3 Hgb 12.2 L (13.7-17.5) gm/L Hct 38.7 L (40.1-51.0) % MCV 81.5 (79.0-92.2) fl MCH 25.7 (25.7-32.2) pg MCHC 31.5 L (32.2-35.5) g/dl RDW Std Deviation 53.8 H (35.1-43.9) fL Plt Count 245 (163-337) K/mm3 MPV 9.3 L (9.4-12.3) fl Neut % (Auto) 74.5 H (34.0-67.9) % Lymph % (Auto) 16.4 L (21.8-53.1) % [place] % (Auto) 7.8 (5.3-12.2) % Eos % (Auto) 0.8 (0.8-7.0) Baso % (Auto) 0.4 (0.1-1.2) % Neut # (Auto) 6.23 H (1.78-5.38) K/mm3 Lymph # (Auto) 1.37 (1.32-3.57) K/mm3 [place] # (Auto) 0.65 (0.30-0.82) K/mm3 Eos # (Auto) 0.07 (0.04-0.54) K/mm3 Baso # (Auto) 0.03 (0.01-0.08) K/mm3 Sodium 143 (136-145) mEq/L Potassium 3.2 L (3.5-5.1) mEq/L Chloride 109 H (98-107) mEq/L Carbon Dioxide 21 (21-32) mEq/L Anion Gap 16.2 H (5-15) BUN 12 (7-18) mg/dL Creatinine 1.4 H (0.7-1.3) mg/dL Est Cr Clr Drug Dosing 70.83 mL/min Estimated GFR (MDRD) 54 (>60) mL/min BUN/Creatinine Ratio 8.6 L (14-18) Glucose 122 H (74-106) mg/dL Calcium 9.1 (8.5-10.1) mg/dL Total Bilirubin 1.0 (0.2-1.0) mg/dL AST 25 (15-37) U/L ALT 68 H (16-63) U/L Alkaline Phosphatase 100 (46-116) U/L Troponin I 0.029 (0.00-0.056) ng/mL NT-Pro-B Natriuret Pep 5607 H (0-125) pg/mL Total Protein 6.9 (6.4-8.2) g/dl Albumin 3.0 L (3.4-5.0) g/dl Globulin 3.9 gm/dL Albumin/Globulin Ratio 0.8 L (1-2) Ethyl Alcohol (0.00) gm% 05/21/18 Range/Units 10:30 WBC (4.23-9.07) K/mm3 RBC (4.63-6.08) M/mm3 Hgb (13.7-17.5) gm/L Hct (40.1-51.0) % MCV (79.0-92.2) fl MCH (25.7-32.2) pg MCHC (32.2-35.5) g/dl RDW Std Deviation (35.1-43.9) fL Plt Count (163-337) K/mm3 MPV (9.4-12.3) fl Neut % (Auto) (34.0-67.9) % Lymph % (Auto) (21.8-53.1) % [place] % (Auto) (5.3-12.2) % Eos % (Auto) (0.8-7.0) Baso % (Auto) (0.1-1.2) % Neut # (Auto) (1.78-5.38) K/mm3 Lymph # (Auto) (1.32-3.57) K/mm3 [place] # (Auto) (0.30-0.82) K/mm3 Eos # (Auto) (0.04-0.54) K/mm3 Baso # (Auto) (0.01-0.08) K/mm3 Sodium (136-145) mEq/L Potassium (3.5-5.1) mEq/L Chloride (98-107) mEq/L Carbon Dioxide (21-32) mEq/L Anion Gap (5-15) BUN (7-18) mg/dL Creatinine (0.7-1.3) mg/dL Est Cr Clr Drug Dosing mL/min Estimated GFR (MDRD) (>60) mL/min BUN/Creatinine Ratio (14-18) Glucose (74-106) mg/dL Calcium (8.5-10.1) mg/dL Total Bilirubin (0.2-1.0) mg/dL AST (15-37) U/L ALT (16-63) U/L Alkaline Phosphatase (46-116) U/L Troponin I (0.00-0.056) ng/mL NT-Pro-B Natriuret Pep (0-125) pg/mL Total Protein (6.4-8.2) g/dl Albumin (3.4-5.0) g/dl Globulin gm/dL Albumin/Globulin Ratio (1-2) Ethyl Alcohol 0.00 (0.00) gm% Meds: Medications Generic Name Dose Route Start Last Admin Trade Name Freq PRN Reason Stop Dose Admin Allopurinol 300 mg 05/22/18 09:00 Zyloprim PO DAILY RAVINDER Enoxaparin Sodium 168 mg 05/21/18 15:30 Lovenox SUBCUT Q12H RAVINDER Diltiazem HCl 125 mg/ Sodium 125 mls @ 5 mls/hr 05/21/18 12:45 05/21/18 15:05 Chloride IV 7 mg/hr TITRATE RAVINDER 7 mls/hr Titration Protocol 5 MG/HR Metoprolol Tartrate 100 mg 05/21/18 15:30 Lopressor PO Q12HR RAVINDER Ondansetron HCl 4 mg 05/21/18 15:17 Zofran Odt PO Q4H PRN nausea, able to take PO Ondansetron HCl 4 mg 05/21/18 15:17 Zofran IV Q4H PRN Nausea/Vomiting Sodium Chloride 10 ml 05/21/18 10:32 05/21/18 13:36 Saline Flush FLUSH 10 ml ASDIRECTED PRN Administration Keep Vein Open Discontinued Medications Generic Name Dose Route Start Last Admin Trade Name Freq PRN Reason Stop Dose Admin Diltiazem HCl 20 mg 05/21/18 10:35 05/21/18 10:40 Cardizem IVPUSH 05/21/18 10:36 20 mg ONETIME ONE Administration Diltiazem HCl 20 mg 05/21/18 11:04 05/21/18 11:09 Cardizem IVPUSH 05/21/18 11:05 20 mg ONETIME ONE Administration Diltiazem HCl 20 mg 05/21/18 12:10 05/21/18 12:16 Cardizem IVPUSH 05/21/18 12:11 20 mg ONETIME ONE Administration Diltiazem HCl 20 mg 05/21/18 13:11 05/21/18 13:31 Cardizem IVPUSH 05/21/18 13:12 20 mg ONETIME ONE Administration Sodium Chloride Confirm 05/21/18 10:38 05/21/18 12:16 Normal Saline Administered 05/21/18 10:39 Not Given Dose 1,000 mls @ as directed .ROUTE .STK-MED ONE - Re-Assessments/Exams Free Text/Narrative Re-Assessment/Exam: 05/21/18 15:29 Patient was initially treated with diltiazem 20 mg IV and also given a 500 mL normal saline bolus. He required several further 20 mg IV boluses followed by diltiazem drip once I was assured by patient that he would be willing to stay for further treatment. As noted he was evaluated about 5 days ago for similar symptoms and found to be in A. fib with RVR at that time but signed out AMA due to "obligation to be at home and care for his dog" . HE is willing to come into the hospital today for further treatment. Diltiazam drip was started, he has been admitted. Departure - Departure Time of Disposition: 12:00 Disposition: Admitted As Inpatient 65 Condition: Serious Clinical Impression: Atrial fibrillation with RVR ED Communication - Discussed Case With (1) Discussed Case With (1): Admitting Provider (Discussed with Dr Hogue, decision to admit at around 11:45) - My Orders Last 24 Hours: My Active Orders 05/21/18 10:32 Sodium Chloride 0.9% [Saline Flush] 10 ml FLUSH ASDIRECTED PRN 05/21/18 10:33 EKG 12 Lead [EKG Documentation Completion] [RC] STAT Peripheral IV Insertion Adult [OM.PC] Stat 05/21/18 12:45 Diltiazem 125 mg Sodium Chloride 0.9% [Normal Saline] 100 ml IV TITRATE 05/21/18 13:10 Admission Status [Patient Status] [ADT] Routine - Assessment/Plan Last 24 Hours: My Active Orders 05/21/18 10:32 Sodium Chloride 0.9% [Saline Flush] 10 ml FLUSH ASDIRECTED PRN 05/21/18 10:33 EKG 12 Lead [EKG Documentation Completion] [RC] STAT Peripheral IV Insertion Adult [OM.PC] Stat 05/21/18 12:45 Diltiazem 125 mg Sodium Chloride 0.9% [Normal Saline] 100 ml IV TITRATE 05/21/18 13:10 Admission Status [Patient Status] [ADT] Routine
[2018-05-21] MEDS ORDERED: Diltiazem 125 MG in Sodium Chloride 0.9% 100 ML IV SCH (12:45)
[2018-05-21] MEDS ORDERED: Ondansetron 4 MG Tab.DIS PO PRN (15:17)
[2018-05-21] MEDS ORDERED: Ondansetron 4 MG/2 ML SDV IV PRN (15:17)
[2018-05-21] MEDS ORDERED: Enoxaparin 150 MG/1 ML Syringe SUBCUT SCH (15:30)
[2018-05-21] MEDS ORDERED: Enoxaparin 30 MG/0.3 ML Syringe SUBCUT SCH (15:30)
[2018-05-21] MEDS: Metoprolol Tartrate 100 MG Tab PO SCH ×2 (15:35→20:37)
[2018-05-21] MEDS: Potassium Chloride 20 MEQ Tab.ER PO SCH ×2 (15:48→20:36)
--- NOTE | 2018-05-21 16:27 | PCM.HP ---
H&P History of Present Illness - General Date of Service: 05/21/18 Admit Problem/Dx: Admission Diagnosis/Problem Admission Diagnosis/Problem Atrial fibrillation with rapid ventricular response Source of Information: Patient, Old Records - History of Present Illness Initial Comments - Free Text/Narative: This 47-year-old male was made through the emergency room with atrial fibrillation with rapid ventricular response. Patient states that approximately 2 weeks ago he was pushing a car out of snow and he had some chest pressure and cough. The cough lasted overnight and then resolved on its own. Little over a 5 days ago patient started developing chest pressure like someone was sitting on his chest. He became fatigued and lightheaded. He had increasing orthopnea and PND. He states that activity makes his symptoms worse which include nausea. Chest pressure did not radiate into his neck or down his arm. Patient was seen in the emergency room 5 days ago for atrial fibrillation with rapid ventricular response. At that time he used methamphetamines one time, because he was feeling depressed. It was recommended the patient be admitted to the hospital, but the patient needed to arrange care for his dog. His symptoms have progressively gotten worse and now he is sitting upright to sleep and short of breath at rest. Patient states he has not taking any medication the last 3 days because he didn't have the money to buy the medication. He was sent home with prescription for Xarelto that he never filled. Previous to a week ago he was able to lay flat. He denies any significant weight gain. He has not had an appetite. No significant swelling of lower extremities. Patient states that he is a weekend drinker and will drink up to a 12 pack. He has not had any alcohol in a week. He has never felt like he has gone through withdrawals when he doesn' t drink. Patient states he has not had methamphetamines in the last year except that one occasion 6 days ago. Patient also has a history of anemia and has been seen by Dr. Carpenter in hematology and oncology. He is currently taking iron. In the emergency room patient was given 3 doses of diltiazem 20 mg. She was also started on a diltiazem drip and transferred to the ICU. He states now he is feeling better than when he first arrived in the emergency room. Review of his old records shows that in November 2016 he was seen in the emergency room and was in atrial fibrillation. He converted spontaneously in the emergency room. At that time patient's BNP was 2500. - Related Data Allergies/Adverse Reactions: Allergies Allergy/AdvReac Type Severity Reaction Status Date / Time No Known Allergies Allergy Verified 05/21/18 15:55 Home Medications: Home Meds Lisinopril 40 mg PO DAILY 09/17/16 [History] Metoprolol Succinate/HCTZ [Metoprolol ER-Hctz 100-12.5 mg] 100 mg PO DAILY 09/17 [History] Allopurinol [Zyloprim] 300 mg PO DAILY 01/04/18 [History] Iron,Carbonyl [Ferretts] 1 tab PO DAILY 01/04/18 [History] Past Medical History HEENT History: Reports: Other (See Below) Cardiovascular History: Reports: Afib, Hypertension Gastrointestinal History: Reports: Other (See Below) Other Gastrointestinal History: hernia repair 2013 Musculoskeletal History: Reports: Gout Other Musculoskeletal History: weakness Psychiatric History: Reports: Addiction Endocrine/Metabolic History: Reports: Obesity/BMI 30+ Hematologic History: Reports: Iron Deficiency Dermatologic History: Reports: Eczema - Past Surgical History GI Surgical History: Reports: Hernia, Abdominal Social & Family History - Family History Family Medical History: Noncontributory - Tobacco Use Smoking Status *Q: Never Smoker Second Hand Smoke Exposure: Yes - Caffeine Use Caffeine Use: Reports: Coffee - Alcohol Use Days Per Week of Alcohol Use: 2 Number of Drinks Per Day: 12 Total Drinks Per Week: 24 Date of Last Drink: 05/14/18 - Recreational Drug Use Recreational Drug Use: No - Living Situation & Occupation Living situation: Reports: , Alone Occupation: Unemployed H&P Review of Systems - Review of Systems: Review Of Systems: See Below General: Reports: Malaise, Fatigue, Decreased Appetite HEENT: Reports: No Symptoms. Denies: Eye Pain, Headaches, Sinus Congestion Pulmonary: Reports: Shortness of Breath. Denies: Pleuritic Chest Pain Cardiovascular: Reports: Palpitations, Dyspnea on Exertion, Orthopnea, PND, Lightheadedness, Blood Pressure Problem. Denies: Chest Pain, Edema Gastrointestinal: Reports: Nausea. Denies: Abdominal Pain, Constipation, Diarrhea Genitourinary: Reports: No Symptoms. Denies: Dysuria, Frequency Musculoskeletal: Reports: No Symptoms. Denies: Neck Pain, Back Pain Skin: Reports: No Symptoms Psychiatric: Reports: Depression, Anxiety. Denies: Confusion, Mood Lability Neurological: Reports: No Symptoms. Denies: Confusion Hematologic/Lymphatic: Reports: No Symptoms Immunologic: Reports: No Symptoms Exam - Exam Exam: See Below - Vital Signs Vital Signs: Last Vital Signs Temp 98.5 F 05/21/18 16:00 Pulse 110 H 05/21/18 16:00 Resp 20 05/21/18 16:00 BP 184/113 H 05/21/18 16:00 Pulse Ox 99 05/21/18 16:00 Weight: 408 lb - Exam Quality Assessment: Supplemental Oxygen General: Alert, Oriented HEENT: Conjunctiva Clear, Mucosa Moist & Chrisney, Posterior Pharynx Clear Neck: Supple, Trachea Midline Lungs: Clear to Auscultation, Normal Respiratory Effort Cardiovascular: Irregular Rhythm, Tachycardia GI/Abdominal Exam: Normal Bowel Sounds, Soft, Non-Tender, No Organomegaly. No: Guarding, Rebound Back Exam: Normal Inspection. No: Paraspinal Tenderness Extremities: Normal Inspection, Normal Range of Motion, No Pedal Edema, Normal Capillary Refill Skin: Warm, Dry, Intact Neurological: Cranial Nerves Intact Neuro Extensive - Mental Status: Alert, Oriented x3, Normal Mood/Affect, Normal Cognition - Patient Data Lab Results Last 24 hrs: Laboratory Results - last 24 hr 05/21/18 05/21/18 05/21/18 Range/Units 10:30 10:30 10:30 WBC 8.36 (4.23-9.07) K/mm3 RBC 4.75 (4.63-6.08) M/mm3 Hgb 12.2 L (13.7-17.5) gm/L Hct 38.7 L (40.1-51.0) % MCV 81.5 (79.0-92.2) fl MCH 25.7 (25.7-32.2) pg MCHC 31.5 L (32.2-35.5) g/dl RDW Std Deviation 53.8 H (35.1-43.9) fL Plt Count 245 (163-337) K/mm3 MPV 9.3 L (9.4-12.3) fl Neut % (Auto) 74.5 H (34.0-67.9) % Lymph % (Auto) 16.4 L (21.8-53.1) % Stokes % (Auto) 7.8 (5.3-12.2) % Eos % (Auto) 0.8 (0.8-7.0) Baso % (Auto) 0.4 (0.1-1.2) % Neut # (Auto) 6.23 H (1.78-5.38) K/mm3 Lymph # (Auto) 1.37 (1.32-3.57) K/mm3 Stokes # (Auto) 0.65 (0.30-0.82) K/mm3 Eos # (Auto) 0.07 (0.04-0.54) K/mm3 Baso # (Auto) 0.03 (0.01-0.08) K/mm3 Sodium 143 (136-145) mEq/L Potassium 3.2 L (3.5-5.1) mEq/L Chloride 109 H (98-107) mEq/L Carbon Dioxide 21 (21-32) mEq/L Anion Gap 16.2 H (5-15) BUN 12 (7-18) mg/dL Creatinine 1.4 H (0.7-1.3) mg/dL Est Cr Clr Drug Dosing 70.83 mL/min Estimated GFR (MDRD) 54 (>60) mL/min BUN/Creatinine Ratio 8.6 L (14-18) Glucose 122 H (74-106) mg/dL Calcium 9.1 (8.5-10.1) mg/dL Total Bilirubin 1.0 (0.2-1.0) mg/dL AST 25 (15-37) U/L ALT 68 H (16-63) U/L Alkaline Phosphatase 100 (46-116) U/L Troponin I 0.029 (0.00-0.056) ng/mL NT-Pro-B Natriuret Pep 5607 H (0-125) pg/mL Total Protein 6.9 (6.4-8.2) g/dl Albumin 3.0 L (3.4-5.0) g/dl Globulin 3.9 gm/dL Albumin/Globulin Ratio 0.8 L (1-2) Ethyl Alcohol (0.00) gm% 05/21/18 Range/Units 10:30 WBC (4.23-9.07) K/mm3 RBC (4.63-6.08) M/mm3 Hgb (13.7-17.5) gm/L Hct (40.1-51.0) % MCV (79.0-92.2) fl MCH (25.7-32.2) pg MCHC (32.2-35.5) g/dl RDW Std Deviation (35.1-43.9) fL Plt Count (163-337) K/mm3 MPV (9.4-12.3) fl Neut % (Auto) (34.0-67.9) % Lymph % (Auto) (21.8-53.1) % Stokes % (Auto) (5.3-12.2) % Eos % (Auto) (0.8-7.0) Baso % (Auto) (0.1-1.2) % Neut # (Auto) (1.78-5.38) K/mm3 Lymph # (Auto) (1.32-3.57) K/mm3 Stokes # (Auto) (0.30-0.82) K/mm3 Eos # (Auto) (0.04-0.54) K/mm3 Baso # (Auto) (0.01-0.08) K/mm3 Sodium (136-145) mEq/L Potassium (3.5-5.1) mEq/L Chloride (98-107) mEq/L Carbon Dioxide (21-32) mEq/L Anion Gap (5-15) BUN (7-18) mg/dL Creatinine (0.7-1.3) mg/dL Est Cr Clr Drug Dosing mL/min Estimated GFR (MDRD) (>60) mL/min BUN/Creatinine Ratio (14-18) Glucose (74-106) mg/dL Calcium (8.5-10.1) mg/dL Total Bilirubin (0.2-1.0) mg/dL AST (15-37) U/L ALT (16-63) U/L Alkaline Phosphatase (46-116) U/L Troponin I (0.00-0.056) ng/mL NT-Pro-B Natriuret Pep (0-125) pg/mL Total Protein (6.4-8.2) g/dl Albumin (3.4-5.0) g/dl Globulin gm/dL Albumin/Globulin Ratio (1-2) Ethyl Alcohol 0.00 (0.00) gm% Result Diagrams: 05/21/18 10:30 05/21/18 10:30 EKG INTERPRETATION EKG Date: 05/21/18 Rhythm: A-Fib Thompson: Normal P-Wave: Absent QRS: Normal ST-T: Other (Flattening of T wave laterally, likely rate related ischemia) EKG Interpretation Comments: Abnormal ECG - Problem List (1) Acute congestive heart failure SNOMED Code(s): 74821486 ICD Code: I50.9 - HEART FAILURE, UNSPECIFIED Status: Acute Current Visit : Yes (2) Essential hypertension SNOMED Code(s): 51374506 ICD Code: I10 - ESSENTIAL (PRIMARY) HYPERTENSION Status: Acute Current Visit: Yes (3) Polysubstance abuse SNOMED Code(s): 865603354 ICD Code: F19.10 - OTHER PSYCHOACTIVE SUBSTANCE ABUSE, UNCOMPLICATED Status : Acute Current Visit: Yes (4) Atrial fibrillation with RVR SNOMED Code(s): 377453867682323 ICD Code: I48.91 - UNSPECIFIED ATRIAL FIBRILLATION Status: Acute Current Visit: Yes (5) Morbid obesity SNOMED Code(s): 928938909 ICD Code: E66.01 - MORBID (SEVERE) OBESITY DUE TO EXCESS CALORIES Status: Chronic Priority: Low Current Visit: No Problem List Initiated/Reviewed/Updated: Yes Orders Last 24hrs: Active Orders 24 hr Category Date Time Status Admission Status [Patient Status] [ADT] Routine ADT 05/21/18 13:10 Active Antiembolic Devices [RC] PER UNIT ROUTINE Care 05/21/18 15:09 Active Bedrest Bathroom Privileges [RC] ASDIRECTED Care 05/21/18 15:17 Active EKG 12 Lead [EKG Documentation Completion] [RC] STAT Care 05/21/18 10:33 Active Height and Weight [RC] 0400 Care 05/21/18 15:17 Active Intake and Output [RC] QSHIFT Care 05/21/18 15:17 Active Oxygen Therapy [RC] PRN Care 05/21/18 15:17 Active VTE/DVT Education [RC] QSHIFT Care 05/21/18 15:17 Active Heart Healthy Diet [DIET] Diet 05/21/18 Breakfast Active ABG [BLOOD GAS ARTERIAL] [BG] Urgent Lab 05/22/18 06:00 Ordered CBC WITH AUTO DIFF [HEME] AM Lab 05/22/18 05:11 Ordered COMPREHENSIVE METABOLIC PN,CMP [CHEM] AM Lab 05/22/18 05:11 Ordered DRUG SCREEN, URINE [URCHEM] Stat Lab 05/21/18 13:42 Ordered GLYCOSYLATED HEMOGLOBIN,HGBA1C [CHEM] AM Lab 05/22/18 05:11 Ordered INR,PT,PROTHROMBIN TIME [COAG] AM Lab 05/22/18 05:11 Ordered MAGNESIUM [CHEM] AM Lab 05/22/18 05:11 Ordered PHOSPHORUS [CHEM] AM Lab 05/22/18 05:11 Ordered PRO B-TYPE NATRIUR PEPT,BNPPRO [CHEM] Routine Lab 05/22/18 05:11 Ordered PTT,PARTIAL THROMBOPLSTIN TIME [COAG] AM Lab 05/22/18 05:11 Ordered TROPONIN I [CHEM] AM Lab 05/22/18 05:11 Ordered TROPONIN I [CHEM] Stat Lab 05/21/18 15:28 Received TSH [CHEM] AM Lab 05/22/18 05:11 Ordered Allopurinol [Zyloprim] Med 05/22/18 09:00 Active 300 mg PO DAILY Apixaban [Eliquis] Med 05/22/18 09:00 Active 5 mg PO BID Diltiazem 125 mg Med 05/21/18 12:45 Active Sodium Chloride 0.9% [Normal Saline] 100 ml IV TITRATE Metoprolol Tartrate [Lopressor] Med 05/21/18 15:30 Active 100 mg PO Q12HR Ondansetron [Zofran ODT] Med 05/21/18 15:17 Active 4 mg PO Q4H PRN Ondansetron [Zofran] Med 05/21/18 15:17 Active 4 mg IV Q4H PRN Potassium Chloride [Klor-Con M20] Med 05/21/18 15:45 Active 20 meq PO BID Sodium Chloride 0.9% [Saline Flush] Med 05/21/18 10:32 Active 10 ml FLUSH ASDIRECTED PRN Peripheral IV Insertion Adult [OM.PC] Stat Oth 05/21/18 10:33 Ordered SCD [Sequential Compression Device] [OM.PC] Routine Oth 05/21/18 15:09 Ordered Resuscitation Status Routine Resus Stat 05/21/18 15:17 Ordered Medication Orders Allopurinol (Zyloprim) 300 mg PO DAILY RAVINDER Apixaban (Eliquis) 5 mg PO BID RAVINDER Diltiazem HCl 125 mg/ Sodium (Chloride) 125 mls @ 5 mls/hr IV TITRATE RAVINDER; Protocol Last Titration: 05/21/18 16:13 Dose: 10 mg/hr, 10 mls/hr Titration: 05/21/18 15:48 Dose: 9 mg/hr, 9 mls/hr Titration: 05/21/18 15:27 Dose: 8 mg/hr, 8 mls/hr Titration: 05/21/18 15:05 Dose: 7 mg/hr, 7 mls/hr Titration: 05/21/18 14:57 Dose: 6 mg/hr, 6 mls/hr Admin: 05/21/18 13:39 Dose: 5 mg/hr, 5 mls/hr Metoprolol Tartrate (Lopressor) 100 mg PO Q12HR [facility] Last Admin: 05/21/18 15:35 Dose: 100 mg Ondansetron HCl (Zofran Odt) 4 mg PO Q4H PRN PRN Reason: nausea, able to take PO Ondansetron HCl (Zofran) 4 mg IV Q4H PRN PRN Reason: Nausea/Vomiting Potassium Chloride (Klor-Con M20) 20 meq PO BID [facility] Stop: 05/22/18 09:01 Last Admin: 05/21/18 15:48 Dose: 20 meq Sodium Chloride (Saline Flush) 10 ml FLUSH ASDIRECTED PRN PRN Reason: Keep Vein Open Last Admin: 05/21/18 13:36 Dose: 10 ml Admin: 05/21/18 10:40 Dose: 10 ml Assessment/Plan Comment:: Neurologic * Chen Coma Scale 15 * No current pain Cardiovascular * Atrial fibrillation with rapid ventricular response * Restart metoprolol. Patient will be placed on metoprolol tartrate 100 mg twice a day. At home he is on metoprolol succinate 100 mg a day. He has not had any medication for 3 days. * Continue Cardizem drip until rate is less than 100 on oral medications. * Follow I's and O's closely with daily weights * [id number]: score 2, 2/2 HTN and CHF- 2.2% per year for stroke * HAS -BLED score 2: 1.88 bleeds per 100 pt-years * Given 1 injection of Lovenox 1 mg/kg. * Switched Eliquis 5 mg twice a day tomorrow. * Hold lisinopril * BNP 5600 * First troponin was 0.029 and repeat troponin was 0.025 * ECG is consistent with atrial fibrillation with rapid ventricular response with possible lateral rate related ischemia. * Blood pressures initially are in the 170s and 180s systolic. This should improve as he gets back on his chronic beta andrey treatment. Pulmonary * High likelihood of sleep apnea. * Monitor O2 sats overnight. Gastrointestinal * Full diet starting tomorrow. Renal * Daily urine output and denies nose * Creatinine 1.4 with estimated GFR greater than 70 * Hold lisinopril Infectious disease * Follow temp and white count Hematology/oncology * History of anemia with unknown origin * Hemoglobin 12.2 with a normocytic normochromic anemia * Monitor hemoglobin closely. * Hold iron currently. * Has been seen by hematology/oncology CODE STATUS: Full code Disposition: 2- 3 days to get patient rate controlled and improved cardiac function. Patient does not have insurance and is very concerned with his hospital stay.
[2018-05-21] MEDS ORDERED: Melatonin 3 MG Tab PO PRN (17:56)
[2018-05-21] MEDS ORDERED: Alum Hydrox/Mag Hydrox/Simeth 30 ML, Lidocaine 2% 15 ML PO ONE ×2 (18:41)
[2018-05-21] MEDS ORDERED: ClonazePAM 1 MG Tab PO PRN (20:00)
[2018-05-22 07:12] LABS: HEMOGLOBIN A1C 5.2 % (4.50-6.20)
[2018-05-22] MEDS: Apixaban 5 MG Tab PO SCH ×2 (08:11→20:26)
[2018-05-22] MEDS: Potassium Chloride 20 MEQ Tab.ER PO SCH (08:11)
[2018-05-22] MEDS: Allopurinol 300 MG Tab PO SCH (08:11)
[2018-05-22] MEDS: Metoprolol Tartrate 100 MG Tab PO SCH ×2 (08:12→20:26)
[2018-05-22] MEDS ORDERED: Furosemide 20 MG/2 ML VIAL IVPUSH ONE (11:49)
[2018-05-22] MEDS ORDERED: Metoprolol Tartrate 50 MG Tab PO ONE (13:16)
[2018-05-22] MEDS ORDERED: LORazepam 2 MG/ML SDV IVPUSH ONE ×2 (13:40→15:28)
--- NOTE | 2018-05-22 14:03 | CR ---
Chest: Portable view of the chest was obtained. Comparison: Prior chest x-ray of 05/21/18. Heart is somewhat enlarged. Lungs are clear. Bony structures are unremarkable. Impression: 1. Nothing acute is seen. Pulmonary vascular congestion appears less prominent than on previous exam. Diagnostic code #2
[2018-05-22] MEDS ORDERED: Metoprolol Tartrate 5 MG/5 ML SDV IVPUSH ONE ×3 (14:05→15:23)
--- NOTE | 2018-05-22 14:18 | PCM.PN ---
- General Info Date of Service: 05/22/18 Admission Dx/Problem (Free Text): Admission Diagnosis/Problem Admission Diagnosis/Problem Atrial fibrillation with rapid ventricular response Subjective Update: Pt. did well overnight and was able to wean off diltiazem drip. He is currently on metoprolol 100 mg twice a day and tolerating it well. He did have some restless leg symptoms last PM requiring clonazepam, but he rested comfortably. This morning he denied any chest pain or SOB. In he early afternoon he became more SOB with complaints of "a band around my chest". ECG, CXR, D-dimer, BMP were normal. pro-BNP did increase, but this correlated with the increase in HR. Patient given 1 mg Ativan with little benefit. He did state he is anxious about the cost of the hospitalization and his dog at home. Functional Status: Reports: Pain Controlled - Review of Systems General: Reports: Fatigue HEENT: Reports: No Symptoms Pulmonary: Reports: Shortness of Breath Cardiovascular: Reports: Dyspnea on Exertion. Denies: Chest Pain, Palpitations , Orthopnea, PND Gastrointestinal: Reports: No Symptoms. Denies: Abdominal Pain Psychiatric: Reports: Anxiety - Patient Data Vitals - Most Recent: Last Vital Signs Temp 97.5 F 05/22/18 12:00 Pulse 105 H 05/22/18 14:13 Resp 22 H 05/22/18 12:00 BP 185/116 H 05/22/18 14:13 Pulse Ox 91 L 05/22/18 12:00 Weight - Most Recent: 409 lb I&O - Last 24 Hours: Intake & Output 05/21/18 05/22/18 05/22/18 22:59 06:59 14:59 Intake Total 636 489 Output Total 600 300 Balance 36 189 Lab Results Last 24 Hours: Laboratory Results - last 24 hr 05/21/18 05/21/18 05/21/18 Range/Units 10:30 15:28 17:05 WBC (4.23-9.07) K/mm3 RBC (4.63-6.08) M/mm3 Hgb (13.7-17.5) gm/L Hct (40.1-51.0) % MCV (79.0-92.2) fl MCH (25.7-32.2) pg MCHC (32.2-35.5) g/dl RDW Std Deviation (35.1-43.9) fL Plt Count (163-337) K/mm3 MPV (9.4-12.3) fl Neut % (Auto) (34.0-67.9) % Lymph % (Auto) (21.8-53.1) % [place] % (Auto) (5.3-12.2) % Eos % (Auto) (0.8-7.0) Baso % (Auto) (0.1-1.2) % Neut # (Auto) (1.78-5.38) K/mm3 Lymph # (Auto) (1.32-3.57) K/mm3 [place] # (Auto) (0.30-0.82) K/mm3 Eos # (Auto) (0.04-0.54) K/mm3 Baso # (Auto) (0.01-0.08) K/mm3 PT (9.5-12.1) SECONDS INR APTT (24-31) SECONDS Puncture Site ABG pH (7.35-7.45) ABG pCO2 (35.0-45.0) mmHg ABG pO2 (80.0-100.0) mmHg ABG HCO3 (22.0-26.0) meq/L ABG O2 Saturation (96.0-97.0) % ABG Base Excess (-2-2.0) Pj Test A-a Gradient mmHg O2 Delivery Device FiO2 (21.00-100.00) % Sodium (136-145) mEq/L Potassium (3.5-5.1) mEq/L Chloride (98-107) mEq/L Carbon Dioxide (21-32) mEq/L Anion Gap (5-15) BUN (7-18) mg/dL Creatinine (0.7-1.3) mg/dL Est Cr Clr Drug Dosing mL/min Estimated GFR (MDRD) (>60) mL/min BUN/Creatinine Ratio (14-18) Glucose (74-106) mg/dL Hemoglobin A1c (4.50-6.20) % Calcium (8.5-10.1) mg/dL Phosphorus (2.6-4.7) mg/dL Magnesium (1.8-2.4) mg/dl Total Bilirubin (0.2-1.0) mg/dL AST (15-37) U/L ALT (16-63) U/L Alkaline Phosphatase (46-116) U/L Troponin I 0.025 (0.00-0.056) ng/mL NT-Pro-B Natriuret Pep (0-125) pg/mL Total Protein (6.4-8.2) g/dl Albumin (3.4-5.0) g/dl Globulin gm/dL Albumin/Globulin Ratio (1-2) TSH 3rd Generation (0.358-3.74) uIU/mL Urine Opiates Screen Negative (QJHZFW=248) Ur Buprenorphine Scrn Negative (CUTOFF=10) Ur Oxycodone Screen Negative (HTS2AC=546) Urine Methadone Screen Negative (EZM9ZO=209) Ur Propoxyphene Screen Negative (MWODQK=872) Ur Barbiturates Screen Negative (ASTPVI=457) Ur Tricyclics Screen Negative (AGRMLI=598) Ur Phencyclidine Scrn Negative (CUTOFF=25) Ur Amphetamine Screen Presumptive positive H (LDGZAS=754) U Methamphetamines Scrn Presumptive positive H (THDEZI=959) U Benzodiazepines Scrn Negative (LIQWUL=755) U Cocaine Metab Screen Negative (GRQMPF=387) U Marijuana (THC) Screen Negative (CUTOFF=50) Ethyl Alcohol 0.00 (0.00) gm% 05/22/18 05/22/18 05/22/18 Range/Units 05:38 05:38 05:38 WBC 7.70 (4.23-9.07) K/mm3 RBC 4.47 L (4.63-6.08) M/mm3 Hgb 11.6 L (13.7-17.5) gm/L Hct 37.5 L (40.1-51.0) % MCV 83.9 (79.0-92.2) fl MCH 26.0 (25.7-32.2) pg MCHC 30.9 L (32.2-35.5) g/dl RDW Std Deviation 56.2 H (35.1-43.9) fL Plt Count 236 (163-337) K/mm3 MPV 9.8 (9.4-12.3) fl Neut % (Auto) 68.1 H (34.0-67.9) % Lymph % (Auto) 20.8 L (21.8-53.1) % [place] % (Auto) 9.1 (5.3-12.2) % Eos % (Auto) 1.3 (0.8-7.0) Baso % (Auto) 0.4 (0.1-1.2) % Neut # (Auto) 5.25 (1.78-5.38) K/mm3 Lymph # (Auto) 1.60 (1.32-3.57) K/mm3 [place] # (Auto) 0.70 (0.30-0.82) K/mm3 Eos # (Auto) 0.10 (0.04-0.54) K/mm3 Baso # (Auto) 0.03 (0.01-0.08) K/mm3 PT 11.5 (9.5-12.1) SECONDS INR 1.06 APTT 28 (24-31) SECONDS Puncture Site ABG pH (7.35-7.45) ABG pCO2 (35.0-45.0) mmHg ABG pO2 (80.0-100.0) mmHg ABG HCO3 (22.0-26.0) meq/L ABG O2 Saturation (96.0-97.0) % ABG Base Excess (-2-2.0) Pj Test A-a Gradient mmHg O2 Delivery Device FiO2 (21.00-100.00) % Sodium 143 (136-145) mEq/L Potassium 3.8 (3.5-5.1) mEq/L Chloride 109 H (98-107) mEq/L Carbon Dioxide 24 (21-32) mEq/L Anion Gap 13.8 (5-15) BUN 11 (7-18) mg/dL Creatinine 1.4 H (0.7-1.3) mg/dL Est Cr Clr Drug Dosing 70.83 mL/min Estimated GFR (MDRD) 54 (>60) mL/min BUN/Creatinine Ratio 7.9 L (14-18) Glucose 98 (74-106) mg/dL Hemoglobin A1c (4.50-6.20) % Calcium 8.9 (8.5-10.1) mg/dL Phosphorus 2.7 (2.6-4.7) mg/dL Magnesium 1.7 L (1.8-2.4) mg/dl Total Bilirubin 0.9 (0.2-1.0) mg/dL AST 20 (15-37) U/L ALT 60 (16-63) U/L Alkaline Phosphatase 91 (46-116) U/L Troponin I 0.024 (0.00-0.056) ng/mL NT-Pro-B Natriuret Pep (0-125) pg/mL Total Protein 6.9 (6.4-8.2) g/dl Albumin 3.0 L (3.4-5.0) g/dl Globulin 3.9 gm/dL Albumin/Globulin Ratio 0.8 L (1-2) TSH 3rd Generation 1.973 (0.358-3.74) uIU/mL Urine Opiates Screen (OYYYET=651) Ur Buprenorphine Scrn (CUTOFF=10) Ur Oxycodone Screen (RGC1HM=624) Urine Methadone Screen (OTR9OR=423) Ur Propoxyphene Screen (AXUQLS=111) Ur Barbiturates Screen (PPWQUJ=416) Ur Tricyclics Screen (IYVHSP=312) Ur Phencyclidine Scrn (CUTOFF=25) Ur Amphetamine Screen (PFPZIP=531) U Methamphetamines Scrn (RWEVSC=543) U Benzodiazepines Scrn (YLCRPF=064) U Cocaine Metab Screen (GWZBZN=728) U Marijuana (THC) Screen (CUTOFF=50) Ethyl Alcohol (0.00) gm% 05/22/18 05/22/18 05/22/18 Range/Units 05:38 05:38 06:32 WBC (4.23-9.07) K/mm3 RBC (4.63-6.08) M/mm3 Hgb (13.7-17.5) gm/L Hct (40.1-51.0) % MCV (79.0-92.2) fl MCH (25.7-32.2) pg MCHC (32.2-35.5) g/dl RDW Std Deviation (35.1-43.9) fL Plt Count (163-337) K/mm3 MPV (9.4-12.3) fl Neut % (Auto) (34.0-67.9) % Lymph % (Auto) (21.8-53.1) % [place] % (Auto) (5.3-12.2) % Eos % (Auto) (0.8-7.0) Baso % (Auto) (0.1-1.2) % Neut # (Auto) (1.78-5.38) K/mm3 Lymph # (Auto) (1.32-3.57) K/mm3 [place] # (Auto) (0.30-0.82) K/mm3 Eos # (Auto) (0.04-0.54) K/mm3 Baso # (Auto) (0.01-0.08) K/mm3 PT (9.5-12.1) SECONDS INR APTT (24-31) SECONDS Puncture Site Lt radial ABG pH 7.42 (7.35-7.45) ABG pCO2 33.1 L (35.0-45.0) mmHg ABG pO2 71.0 L (80.0-100.0) mmHg ABG HCO3 21.1 L (22.0-26.0) meq/L ABG O2 Saturation 95.8 L (96.0-97.0) % ABG Base Excess -2.2 L (-2-2.0) Pj Test Positive A-a Gradient 22 mmHg O2 Delivery Device Room air FiO2 21.00 (21.00-100.00) % Sodium (136-145) mEq/L Potassium (3.5-5.1) mEq/L Chloride (98-107) mEq/L Carbon Dioxide (21-32) mEq/L Anion Gap (5-15) BUN (7-18) mg/dL Creatinine (0.7-1.3) mg/dL Est Cr Clr Drug Dosing mL/min Estimated GFR (MDRD) (>60) mL/min BUN/Creatinine Ratio (14-18) Glucose (74-106) mg/dL Hemoglobin A1c 5.20 (4.50-6.20) % Calcium (8.5-10.1) mg/dL Phosphorus (2.6-4.7) mg/dL Magnesium (1.8-2.4) mg/dl Total Bilirubin (0.2-1.0) mg/dL AST (15-37) U/L ALT (16-63) U/L Alkaline Phosphatase (46-116) U/L Troponin I (0.00-0.056) ng/mL NT-Pro-B Natriuret Pep 4907 H (0-125) pg/mL Total Protein (6.4-8.2) g/dl Albumin (3.4-5.0) g/dl Globulin gm/dL Albumin/Globulin Ratio (1-2) TSH 3rd Generation (0.358-3.74) uIU/mL Urine Opiates Screen (ZTOFCQ=749) Ur Buprenorphine Scrn (CUTOFF=10) Ur Oxycodone Screen (TUI4RT=403) Urine Methadone Screen (QML9FC=745) Ur Propoxyphene Screen (DMWXKD=361) Ur Barbiturates Screen (APBFSR=333) Ur Tricyclics Screen (UPMZZX=661) Ur Phencyclidine Scrn (CUTOFF=25) Ur Amphetamine Screen (EPVYOP=146) U Methamphetamines Scrn (DLMIVJ=004) U Benzodiazepines Scrn (OWVXFY=648) U Cocaine Metab Screen (SJJJWH=069) U Marijuana (THC) Screen (CUTOFF=50) Ethyl Alcohol (0.00) gm% Med Orders - Current: Current Medications Allopurinol (Zyloprim) 300 mg PO DAILY [facility] Last Admin: 05/22/18 08:11 Dose: 300 mg Apixaban (Eliquis) 5 mg PO BID RAVINDER Last Admin: 05/22/18 08:11 Dose: 5 mg Clonazepam (Klonopin) 1 mg PO BEDTIME PRN PRN Reason: Other Last Admin: 05/21/18 20:36 Dose: 1 mg Diltiazem HCl 125 mg/ Sodium (Chloride) 125 mls @ 5 mls/hr IV TITRATE RAVINDER; Protocol Last Titration: 05/22/18 03:05 Dose: 0 mg/hr, 0 mls/hr Melatonin (Melatonin) 3 mg PO BEDTIME PRN PRN Reason: Insomnia Metoprolol Tartrate (Lopressor) 100 mg PO Q12HR RAVINDER Last Admin: 05/22/18 08:12 Dose: 100 mg Ondansetron HCl (Zofran Odt) 4 mg PO Q4H PRN PRN Reason: nausea, able to take PO Ondansetron HCl (Zofran) 4 mg IV Q4H PRN PRN Reason: Nausea/Vomiting Sodium Chloride (Saline Flush) 10 ml FLUSH ASDIRECTED PRN PRN Reason: Keep Vein Open Last Admin: 05/21/18 13:36 Dose: 10 ml Discontinued Medications Al Hydroxide/Mg Hydroxide 30 (ml/ Lidocaine HCl 15 ml) 0 ml PO ONETIME ONE Stop: 05/21/18 18:42 Last Admin: 05/21/18 18:51 Dose: 30 ml Diltiazem HCl (Cardizem) 20 mg IVPUSH ONETIME ONE Stop: 05/21/18 10:36 Last Admin: 05/21/18 10:40 Dose: 20 mg Diltiazem HCl (Cardizem) 20 mg IVPUSH ONETIME ONE Stop: 05/21/18 11:05 Last Admin: 05/21/18 11:09 Dose: 20 mg Diltiazem HCl (Cardizem) 20 mg IVPUSH ONETIME ONE Stop: 05/21/18 12:11 Last Admin: 05/21/18 12:16 Dose: 20 mg Diltiazem HCl (Cardizem) 20 mg IVPUSH ONETIME ONE Stop: 05/21/18 13:12 Last Admin: 05/21/18 13:31 Dose: 20 mg Enoxaparin Sodium (Lovenox) 150 mg SUBCUT Q12H RAVINDER Last Admin: 05/21/18 15:32 Dose: 150 mg Enoxaparin Sodium (Lovenox) 30 mg SUBCUT Q12H RAVINDER Last Admin: 05/21/18 15:35 Dose: 30 mg Furosemide (Lasix) 20 mg IVPUSH ONETIME ONE Stop: 05/22/18 11:50 Last Admin: 05/22/18 12:01 Dose: 20 mg Sodium Chloride (Normal Saline) Confirm Administered Dose 1,000 mls @ as directed .ROUTE .STK-MED ONE Stop: 05/21/18 10:39 Last Admin: 05/21/18 12:16 Dose: Not Given Lorazepam (Ativan) 1 mg IVPUSH ONETIME ONE Stop: 05/22/18 13:41 Last Admin: 05/22/18 14:02 Dose: 1 mg Metoprolol Tartrate (Lopressor) 50 mg PO ONETIME ONE Stop: 05/22/18 13:17 Last Admin: 05/22/18 13:27 Dose: 50 mg Metoprolol Tartrate (Lopressor) 5 mg IVPUSH ONETIME ONE Stop: 05/22/18 14:06 Last Admin: 05/22/18 14:13 Dose: 5 mg Potassium Chloride (Klor-Con M20) 20 meq PO BID RAVINDER Stop: 05/22/18 09:01 Last Admin: 05/22/18 08:11 Dose: 20 meq - Exam General: Alert, Oriented, Mild Distress HEENT: Pupils Equal Neck: Supple Lungs: Clear to Auscultation. No: Normal Respiratory Effort (Increased respiratory effort and rate.) Cardiovascular: Irregular Rhythm, Tachycardia Extremities: Normal Inspection, Non-Tender, Pedal Edema (trace) Skin: Warm, Dry Psy/Mental Status: Alert, Anxious, Agitated EKG INTERPRETATION EKG Date: 05/22/18 Time: 14:00 Rhythm: A-Fib [place]: Normal P-Wave: Absent QRS: Normal EKG Interpretation Comments: No change from 05/21/2018 - Problem List & Annotations (1) Acute congestive heart failure SNOMED Code(s): 57887114 Code(s): I50.9 - HEART FAILURE, UNSPECIFIED Status: Acute Current Visit: Yes (2) Essential hypertension SNOMED Code(s): 41255810 Code(s): I10 - ESSENTIAL (PRIMARY) HYPERTENSION Status: Acute Current Visit: Yes (3) Polysubstance abuse SNOMED Code(s): 160415501 Code(s): F19.10 - OTHER PSYCHOACTIVE SUBSTANCE ABUSE, UNCOMPLICATED Status : Acute Current Visit: Yes (4) Atrial fibrillation with RVR SNOMED Code(s): 824611147069800 Code(s): I48.91 - UNSPECIFIED ATRIAL FIBRILLATION Status: Acute Current Visit: Yes (5) Morbid obesity SNOMED Code(s): 892936463 Code(s): E66.01 - MORBID (SEVERE) OBESITY DUE TO EXCESS CALORIES Status: Chronic Priority: Low Current Visit: No - Problem List Review Problem List Initiated/Reviewed/Updated: Yes - My Orders Last 24 Hours: My Active Orders 05/21/18 15:09 Antiembolic Devices [RC] PER UNIT ROUTINE SCD [Sequential Compression Device] [OM.PC] Routine 05/21/18 15:17 Height and Weight [RC] 0400 Intake and Output [RC] 04,1600 Oxygen Therapy [RC] PRN VTE/DVT Education [RC] QSHIFT Ondansetron [Zofran ODT] 4 mg PO Q4H PRN Ondansetron [Zofran] 4 mg IV Q4H PRN Resuscitation Status Routine 05/21/18 15:30 Metoprolol Tartrate [Lopressor] 100 mg PO Q12HR 05/21/18 17:56 Melatonin 3 mg PO BEDTIME PRN 05/21/18 19:07 EKG 12 Lead [EK] Stat 05/21/18 20:00 ClonazePAM [KlonoPIN] 1 mg PO BEDTIME PRN 05/22/18 09:00 Allopurinol [Zyloprim] 300 mg PO DAILY Apixaban [Eliquis] 5 mg PO BID 05/22/18 13:01 Up ad Torrie [RC] ASDIRECTED 05/22/18 13:34 EKG 12 Lead [EK] Stat 05/22/18 13:36 EKG Documentation Completion [RC] ASDIRECTED 05/22/18 14:04 D-DIMER QUANTITATIVE [COAG] Stat PRO B-TYPE NATRIUR PEPT,BNPPRO [CHEM] Stat TROPONIN I [CHEM] Stat 05/22/18 14:14 BASIC METABOLIC PANEL,BMP [CHEM] Stat - Plan Plan:: Neurologic * [place] Coma Scale 15 * No current pain Cardiovascular * Atrial fibrillation with rapid ventricular response * Patient placed on metoprolol tartrate 100 mg twice a day. At home he is on metoprolol succinate 100 mg a day. * Cardizem drip stopped at 0300 2/2 rate less than 100. * Follow I's and O's closely with daily weights * [id number]: score 2, 2/2 HTN and CHF- 2.2% per year for stroke * HAS -BLED score 2: 1.88 bleeds per 100 pt-years * Switched Eliquis 5 mg twice a day. * Hold lisinopril * BNP decreased to 4900 * First troponin was 0.029 and repeat troponin was 0.025, this am trop 0.024. * Blood pressures continue in the 170s and 180s systolic. * titrate metoprolol to lower bp and control rate * metoprolol tartrate 5 mg IV given 2/2 elevated bp (190/132) and additional metoprolol tartrate 50mg po at 1330 * Give Lasix 20 mg IV x 1 Pulmonary * High likelihood of sleep apnea based on ABG * He will need home sleep study Gastrointestinal * Full diet Renal * Daily urine output * Creatinine 1.4 with estimated GFR greater than 70 * Hold lisinopril Infectious disease * Follow temp and white count Hematology/oncology * History of anemia with unknown origin * Hemoglobin 12.2 with a normocytic normochromic anemia * Monitor hemoglobin closely. * Hold iron currently. * Has been seen by hematology/oncology Neuro * Pt. complained of restless leg last pm. given clonazepam 1 mg qhs. He states it helped his legs and sleep. Psych * Pt. appeared very anxious with complaints of a band around his chest. No medical cause was found initially, so ativan 1 mg IV given. CODE STATUS: Full code Disposition: 2- 3 days to get patient rate controlled and improved cardiac function. Patient does not have insurance and is very concerned with his hospital stay.
[2018-05-22] MEDS ORDERED: Magnesium Sulfate/Water 2 GM in Premix Bag 1 BAG IV ONE (14:27)
[2018-05-22] MEDS: Diltiazem IR 60 MG Tab PO SCH ×2 (18:25→23:12)
[2018-05-22] MEDS: Sodium Chloride 0.9% 10 ML Syringe FLUSH PRN (20:25)
[2018-05-23] MEDS: Diltiazem IR 60 MG Tab PO SCH (05:45)
[2018-05-23] MEDS: Allopurinol 300 MG Tab PO SCH (08:10)
[2018-05-23] MEDS: Apixaban 5 MG Tab PO SCH (08:10)
[2018-05-23] MEDS: Metoprolol Tartrate 100 MG Tab PO SCH (08:10)
[2018-05-23] MEDS ORDERED: Diltiazem 120 MG Cap.CD PO SCH (12:00)
[2018-05-23 13:00] VITALS: BP 152/105
--- NOTE | 2018-05-23 13:36 | PCM.DCSUM1 ---
Discharge Summary - Hospital Course HPI Initial Comments: This 47-year-old male was made through the emergency room with atrial fibrillation with rapid ventricular response. Patient states that approximately 2 weeks ago he was pushing a car out of snow and he had some chest pressure and cough. The cough lasted overnight and then resolved on its own. Little over a 5 days ago patient started developing chest pressure like someone was sitting on his chest. He became fatigued and lightheaded. He had increasing orthopnea and PND. He states that activity makes his symptoms worse which include nausea. Chest pressure did not radiate into his neck or down his arm. Patient was seen in the emergency room 5 days ago for atrial fibrillation with rapid ventricular response. At that time he used methamphetamines one time, because he was feeling depressed. It was recommended the patient be admitted to the hospital, but the patient needed to arrange care for his dog. His symptoms have progressively gotten worse and now he is sitting upright to sleep and short of breath at rest. Patient states he has not taking any medication the last 3 days because he didn't have the money to buy the medication. He was sent home with prescription for Xarelto that he never filled. Previous to a week ago he was able to lay flat. He denies any significant weight gain. He has not had an appetite. No significant swelling of lower extremities. Patient states that he is a weekend drinker and will drink up to a 12 pack. He has not had any alcohol in a week. He has never felt like he has gone through withdrawals when he doesn' t drink. Patient states he has not had methamphetamines in the last year except that one occasion 6 days ago. Patient also has a history of anemia and has been seen by Dr. Carpenter in hematology and oncology. He is currently taking iron. In the emergency room patient was given 3 doses of diltiazem 20 mg. She was also started on a diltiazem drip and transferred to the ICU. He states now he is feeling better than when he first arrived in the emergency room. Review of his old records shows that in November 2016 he was seen in the emergency room and was in atrial fibrillation. He converted spontaneously in the emergency room. At that time patient's BNP was 2500. Brief History: Patient was started on metoprolol tartrate 100 mg twice a day. Over the first evening we are able to wean off his Cardizem drip. Next morning he did well, but developed some anxiety after lunch. He complained of a tight band around his chest and his blood pressure and pulse rate increase. He was given Her 50 mg of metoprolol tartrate by mouth and then metoprolol tartrate 5 mg IV 3. That evening I started him on diltiazem IR 60 mg a day and captopril 6.25 mg. Blood pressure did improve as well as his pulse. Pulse in the morning was in the 60s with episodes dropping into the 40s. Patient was placed on Cardizem CD 120 mg and his pulse is been in the 70s. He is asymptomatic. He did get 1 dose of Lasix. His BNP did go up slightly from admission, but he is asymptomatic at this time. He did have a pound and a half weight loss. This is likely secondary to increased cardiac demand due to tachycardia. Diagnosis: Stroke: No - Discharge Data Discharge Date: 05/23/18 Discharge Disposition: Home, Self-Care 01 Condition: Good - Discharge Diagnosis/Problem(s) (1) Acute congestive heart failure SNOMED Code(s): 62380908 ICD Code: I50.9 - HEART FAILURE, UNSPECIFIED Status: Acute Current Visit : Yes (2) Essential hypertension SNOMED Code(s): 28894111 ICD Code: I10 - ESSENTIAL (PRIMARY) HYPERTENSION Status: Acute Current Visit: Yes (3) Polysubstance abuse SNOMED Code(s): 942524275 ICD Code: F19.10 - OTHER PSYCHOACTIVE SUBSTANCE ABUSE, UNCOMPLICATED Status : Acute Current Visit: Yes (4) Atrial fibrillation with RVR SNOMED Code(s): 902593105554626 ICD Code: I48.91 - UNSPECIFIED ATRIAL FIBRILLATION Status: Acute Current Visit: Yes (5) Morbid obesity SNOMED Code(s): 027194877 ICD Code: E66.01 - MORBID (SEVERE) OBESITY DUE TO EXCESS CALORIES Status: Chronic Priority: Low Current Visit: No - Patient Instructions Diet: Heart Healthy Diet Activity: As Tolerated Driving: May Drive Today Showering/Bathing: May Shower - Discharge Plan *PRESCRIPTION DRUG MONITORING PROGRAM REVIEWED*: No *COPY OF PRESCRIPTION DRUG MONITORING REPORT IN PATIENT ROSHNI: No Prescriptions/Med Rec: Metoprolol Tartrate [Lopressor] 100 mg PO Q12HR #60 tablet Apixaban [Eliquis] 5 mg PO BID #60 tablet Diltiazem [Cardizem CD] 120 mg PO DAILY #30 cap.cd Home Medications: Home Meds Lisinopril 40 mg PO DAILY 09/17/16 [History] Allopurinol [Zyloprim] 300 mg PO DAILY 01/04/18 [History] Iron,Carbonyl [Ferretts] 1 tab PO DAILY 01/04/18 [History] Apixaban [Eliquis] 5 mg PO BID #60 tablet 05/23/18 [Rx] Diltiazem [Cardizem CD] 120 mg PO DAILY #30 cap.cd 05/23/18 [Rx] Metoprolol Tartrate [Lopressor] 100 mg PO Q12HR #60 tablet 05/23/18 [Rx] Oxygen Therapy Mode: Room Air Patient Handouts: Atrial Fibrillation, Hypertension Forms: ED Department Discharge Referrals: Tash George MD [Primary Care Provider] - - Discharge Summary/Plan Comment DC Time >30 min.: No Discharge Summary/Plan Comment: Atrial fibrillation with rapid ventricular response-resolved * Patient will go home on metoprolol tartrate 100 mg twice a day, Cardizem CD 120 mg daily, and he will restart his lisinopril 40 mg a day. * It appears the patient had an episode of atrial fibrillation in 2016 when he was seen in the emergency room. At that time it resolved spontaneously. * Eliquis 5 mg twice a day. * Patient will need an echocardiogram as an outpatient. * He should see cardiology with potential of conversion to sinus rhythm. * Follow-up with his primary care provider in a week Hypertension * Patient is living without adequate control of his blood pressure. This can be titrated as an outpatient. We will also get benefit from restarting his lisinopril 40 mg a day. * We discussed lifestyle issues. Heart healthy diet and exercise will improve hypertension. Polysubstance abuse * Discussed this with the patient. He may benefit from outpatient treatment but is not ready at this time. Follow-up PCP in 7-10 days. Will need appointment with cardiology and echocardiogram. - General Info Date of Service: 05/23/18 Admission Dx/Problem (Free Text: Admission Diagnosis/Problem Admission Diagnosis/Problem Atrial fibrillation with rapid ventricular response Subjective Update: Blood pressure and pulse both improved overnight. Patient is without any abdominal pain, chest pain, shortness breath, wheezing, orthopnea, or PND. - Review of Systems General: Reports: No Symptoms HEENT: Reports: No Symptoms Pulmonary: Reports: No Symptoms Cardiovascular: Reports: No Symptoms. Denies: Chest Pain, Orthopnea, PND - Patient Data Vitals - Most Recent: Last Vital Signs Temp 98.0 F 05/23/18 11:52 Pulse 67 05/23/18 11:40 Resp 16 05/23/18 11:52 BP 152/105 H 05/23/18 13:02 Pulse Ox 95 05/23/18 11:52 Weight - Most Recent: 407 lb 8 oz I&O - Last 24 hours: Intake & Output 05/22/18 05/23/18 05/23/18 22:59 06:59 14:59 Intake Total 830 240 120 Output Total 1000 300 Balance -170 -60 120 Lab Results - Last 24 hrs: Laboratory Results - last 24 hr 05/22/18 05/22/18 05/22/18 Range/Units 14:02 14:04 14:04 WBC (4.23-9.07) K/mm3 RBC (4.63-6.08) M/mm3 Hgb (13.7-17.5) gm/L Hct (40.1-51.0) % MCV (79.0-92.2) fl MCH (25.7-32.2) pg MCHC (32.2-35.5) g/dl RDW Std Deviation (35.1-43.9) fL Plt Count (163-337) K/mm3 MPV (9.4-12.3) fl Neut % (Auto) (34.0-67.9) % Lymph % (Auto) (21.8-53.1) % Guthrie % (Auto) (5.3-12.2) % Eos % (Auto) (0.8-7.0) Baso % (Auto) (0.1-1.2) % Neut # (Auto) (1.78-5.38) K/mm3 Lymph # (Auto) (1.32-3.57) K/mm3 Guthrie # (Auto) (0.30-0.82) K/mm3 Eos # (Auto) (0.04-0.54) K/mm3 Baso # (Auto) (0.01-0.08) K/mm3 D-Dimer, Quantitative 0.54 H (0.19-0.50) mg/L Sodium 142 (136-145) mEq/L Potassium 4.2 (3.5-5.1) mEq/L Chloride 108 H (98-107) mEq/L Carbon Dioxide 25 (21-32) mEq/L Anion Gap 13.2 (5-15) BUN 14 (7-18) mg/dL Creatinine 1.5 H (0.7-1.3) mg/dL Est Cr Clr Drug Dosing 66.10 mL/min Estimated GFR (MDRD) 50 (>60) mL/min BUN/Creatinine Ratio 9.3 L (14-18) Glucose 101 (74-106) mg/dL Calcium 9.4 (8.5-10.1) mg/dL Magnesium (1.8-2.4) mg/dl Total Bilirubin (0.2-1.0) mg/dL AST (15-37) U/L ALT (16-63) U/L Alkaline Phosphatase (46-116) U/L Troponin I < 0.017 (0.00-0.056) ng/mL NT-Pro-B Natriuret Pep (0-125) pg/mL Total Protein (6.4-8.2) g/dl Albumin (3.4-5.0) g/dl Globulin gm/dL Albumin/Globulin Ratio (1-2) 05/22/18 05/23/18 05/23/18 Range/Units 14:04 06:45 06:45 WBC 7.68 (4.23-9.07) K/mm3 RBC 4.54 L (4.63-6.08) M/mm3 Hgb 11.7 L (13.7-17.5) gm/L Hct 37.7 L (40.1-51.0) % MCV 83.0 (79.0-92.2) fl MCH 25.8 (25.7-32.2) pg MCHC 31.0 L (32.2-35.5) g/dl RDW Std Deviation 55.3 H (35.1-43.9) fL Plt Count 194 (163-337) K/mm3 MPV 9.3 L (9.4-12.3) fl Neut % (Auto) 65.5 (34.0-67.9) % Lymph % (Auto) 21.6 L (21.8-53.1) % Guthrie % (Auto) 10.7 (5.3-12.2) % Eos % (Auto) 1.4 (0.8-7.0) Baso % (Auto) 0.4 (0.1-1.2) % Neut # (Auto) 5.03 (1.78-5.38) K/mm3 Lymph # (Auto) 1.66 (1.32-3.57) K/mm3 Guthrie # (Auto) 0.82 (0.30-0.82) K/mm3 Eos # (Auto) 0.11 (0.04-0.54) K/mm3 Baso # (Auto) 0.03 (0.01-0.08) K/mm3 D-Dimer, Quantitative (0.19-0.50) mg/L Sodium 142 (136-145) mEq/L Potassium 3.7 (3.5-5.1) mEq/L Chloride 107 (98-107) mEq/L Carbon Dioxide 27 (21-32) mEq/L Anion Gap 11.7 (5-15) BUN 16 (7-18) mg/dL Creatinine 1.5 H (0.7-1.3) mg/dL Est Cr Clr Drug Dosing 66.10 mL/min Estimated GFR (MDRD) 50 (>60) mL/min BUN/Creatinine Ratio 10.7 L (14-18) Glucose 104 (74-106) mg/dL Calcium 8.8 (8.5-10.1) mg/dL Magnesium 1.9 (1.8-2.4) mg/dl Total Bilirubin 0.9 (0.2-1.0) mg/dL AST 20 (15-37) U/L ALT 48 (16-63) U/L Alkaline Phosphatase 84 (46-116) U/L Troponin I (0.00-0.056) ng/mL NT-Pro-B Natriuret Pep 6267 H (0-125) pg/mL Total Protein 6.5 (6.4-8.2) g/dl Albumin 2.8 L (3.4-5.0) g/dl Globulin 3.7 gm/dL Albumin/Globulin Ratio 0.8 L (1-2) 05/23/18 Range/Units 06:45 WBC (4.23-9.07) K/mm3 RBC (4.63-6.08) M/mm3 Hgb (13.7-17.5) gm/L Hct (40.1-51.0) % MCV (79.0-92.2) fl MCH (25.7-32.2) pg MCHC (32.2-35.5) g/dl RDW Std Deviation (35.1-43.9) fL Plt Count (163-337) K/mm3 MPV (9.4-12.3) fl Neut % (Auto) (34.0-67.9) % Lymph % (Auto) (21.8-53.1) % Guthrie % (Auto) (5.3-12.2) % Eos % (Auto) (0.8-7.0) Baso % (Auto) (0.1-1.2) % Neut # (Auto) (1.78-5.38) K/mm3 Lymph # (Auto) (1.32-3.57) K/mm3 Guthrie # (Auto) (0.30-0.82) K/mm3 Eos # (Auto) (0.04-0.54) K/mm3 Baso # (Auto) (0.01-0.08) K/mm3 D-Dimer, Quantitative (0.19-0.50) mg/L Sodium (136-145) mEq/L Potassium (3.5-5.1) mEq/L Chloride (98-107) mEq/L Carbon Dioxide (21-32) mEq/L Anion Gap (5-15) BUN (7-18) mg/dL Creatinine (0.7-1.3) mg/dL Est Cr Clr Drug Dosing mL/min Estimated GFR (MDRD) (>60) mL/min BUN/Creatinine Ratio (14-18) Glucose (74-106) mg/dL Calcium (8.5-10.1) mg/dL Magnesium (1.8-2.4) mg/dl Total Bilirubin (0.2-1.0) mg/dL AST (15-37) U/L ALT (16-63) U/L Alkaline Phosphatase (46-116) U/L Troponin I (0.00-0.056) ng/mL NT-Pro-B Natriuret Pep 5480 H (0-125) pg/mL Total Protein (6.4-8.2) g/dl Albumin (3.4-5.0) g/dl Globulin gm/dL Albumin/Globulin Ratio (1-2) Med Orders - Current: Current Medications Allopurinol (Zyloprim) 300 mg PO DAILY [facility] Last Admin: 05/23/18 08:10 Dose: 300 mg Apixaban (Eliquis) 5 mg PO BID [facility] Last Admin: 05/23/18 08:10 Dose: 5 mg Captopril (Capoten) 6.25 mg PO Q8H [facility] Last Admin: 05/23/18 12:59 Dose: 6.25 mg Clonazepam (Klonopin) 1 mg PO BEDTIME PRN PRN Reason: Other Last Admin: 05/21/18 20:36 Dose: 1 mg Diltiazem HCl (Cardizem Cd) 120 mg PO DAILY [facility] Last Admin: 05/23/18 11:40 Dose: 120 mg Melatonin (Melatonin) 3 mg PO BEDTIME PRN PRN Reason: Insomnia Last Admin: 05/22/18 20:27 Dose: 3 mg Metoprolol Tartrate (Lopressor) 100 mg PO Q12HR [facility] Last Admin: 05/23/18 08:10 Dose: 100 mg Ondansetron HCl (Zofran Odt) 4 mg PO Q4H PRN PRN Reason: nausea, able to take PO Ondansetron HCl (Zofran) 4 mg IV Q4H PRN PRN Reason: Nausea/Vomiting Sodium Chloride (Saline Flush) 10 ml FLUSH ASDIRECTED PRN PRN Reason: Keep Vein Open Last Admin: 05/22/18 20:25 Dose: 10 ml Discontinued Medications Al Hydroxide/Mg Hydroxide 30 (ml/ Lidocaine HCl 15 ml) 0 ml PO ONETIME ONE Stop: 05/21/18 18:42 Last Admin: 05/21/18 18:51 Dose: 30 ml Diltiazem HCl (Cardizem) 20 mg IVPUSH ONETIME ONE Stop: 05/21/18 10:36 Last Admin: 05/21/18 10:40 Dose: 20 mg Diltiazem HCl (Cardizem) 20 mg IVPUSH ONETIME ONE Stop: 05/21/18 11:05 Last Admin: 05/21/18 11:09 Dose: 20 mg Diltiazem HCl (Cardizem) 20 mg IVPUSH ONETIME ONE Stop: 05/21/18 12:11 Last Admin: 05/21/18 12:16 Dose: 20 mg Diltiazem HCl (Cardizem) 20 mg IVPUSH ONETIME ONE Stop: 05/21/18 13:12 Last Admin: 05/21/18 13:31 Dose: 20 mg Diltiazem HCl (Cardizem) 60 mg PO Q6HR [facility] Last Admin: 05/23/18 05:45 Dose: 60 mg Enoxaparin Sodium (Lovenox) 150 mg SUBCUT Q12H [facility] Last Admin: 05/21/18 15:32 Dose: 150 mg Enoxaparin Sodium (Lovenox) 30 mg SUBCUT Q12H [facility] Last Admin: 05/21/18 15:35 Dose: 30 mg Furosemide (Lasix) 20 mg IVPUSH ONETIME ONE Stop: 05/22/18 11:50 Last Admin: 05/22/18 12:01 Dose: 20 mg Sodium Chloride (Normal Saline) Confirm Administered Dose 1,000 mls @ as directed .ROUTE .STK-MED ONE Stop: 05/21/18 10:39 Last Admin: 05/21/18 12:16 Dose: Not Given Diltiazem HCl 125 mg/ Sodium (Chloride) 125 mls @ 5 mls/hr IV TITRATE [facility]; Protocol Last Titration: 05/22/18 03:05 Dose: 0 mg/hr, 0 mls/hr Magnesium Sulfate 2 gm/ Premix 50 mls @ 25 mls/hr IV ONETIME ONE Stop: 05/22/18 16:26 Last Admin: 05/22/18 15:00 Dose: 25 mls/hr Lorazepam (Ativan) 1 mg IVPUSH ONETIME ONE Stop: 05/22/18 13:41 Last Admin: 05/22/18 14:02 Dose: 1 mg Lorazepam (Ativan) 2 mg IVPUSH ONETIME ONE Stop: 05/22/18 15:29 Last Admin: 05/22/18 15:38 Dose: 1 mg Metoprolol Tartrate (Lopressor) 50 mg PO ONETIME ONE Stop: 05/22/18 13:17 Last Admin: 05/22/18 13:27 Dose: 50 mg Metoprolol Tartrate (Lopressor) 5 mg IVPUSH ONETIME ONE Stop: 05/22/18 14:06 Last Admin: 05/22/18 14:13 Dose: 5 mg Metoprolol Tartrate (Lopressor) 5 mg IVPUSH ONETIME ONE Stop: 05/22/18 15:08 Last Admin: 05/22/18 15:15 Dose: 5 mg Metoprolol Tartrate (Lopressor) 5 mg IVPUSH ONETIME ONE Stop: 05/22/18 15:24 Last Admin: 05/22/18 15:31 Dose: 5 mg Potassium Chloride (Klor-Con M20) 20 meq PO BID [facility] Stop: 05/22/18 09:01 Last Admin: 05/22/18 08:11 Dose: 20 meq - Exam General: Reports: Alert, Oriented HEENT: Reports: Pupils Equal Neck: Reports: Supple Lungs: Reports: Clear to Auscultation, Normal Respiratory Effort Cardiovascular: Reports: Irregular Rhythm. Denies: Bradycardia, Tachycardia GI/Abdominal Exam: Normal Bowel Sounds, Soft, No Distention Extremities: Normal Inspection, Normal Range of Motion, Non-Tender, No Pedal Edema Skin: Reports: Warm, Dry
== END 2018-05-23 14:12 | disposition home or self-care (01) | DRG 309 ==
LOC: JD.ED 10:07 → JD.ICU 13:13 → UNDODISIN 14:40
PROVIDERS: ADMIT Family Medicine; ATTEND Family Medicine
DX: I48.91 Unspecified atrial fibrillation (principal); Z68.43 Body mass index [BMI] 50.0-59.9, adult; D64.9 Anemia, unspecified; I50.9 Heart failure, unspecified; I11.0 Hypertensive heart disease with heart failure; E66.01 Morbid (severe) obesity due to excess calories; M10.9 Gout, unspecified; E61.1 Iron deficiency; F32.9 Major depressive disorder, single episode, unspecified; F41.9 Anxiety disorder, unspecified; G47.30 Sleep apnea, unspecified; F19.10 Other psychoactive substance abuse, uncomplicated; G25.81 Restless legs syndrome; Z79.899 Other long term (current) drug therapy; Z91.120 Patient's intentional underdosing of medication regimen due to financial hardship
CPT/HCPCS: 36415; 36600; 71045; 71045-26; 80048; 80053; 80306; 82803; 83036; 83735; 83880; 84100; 84443; 84484; 85025; 85379; 85610; 85730; 93005; 93010; 96374; 96376; 99284; 99285-25; A9270-GY; G0480; J1650; J2060; J3475; J3490; J7030

== ENCOUNTER 2018-05-28 09:58 | Emergency (ER) | payer MEDICAID ==
[2018-05-28] MEDS ORDERED: Sodium Chloride 0.9% 10 ML Syringe FLUSH PRN (10:08)
[2018-05-28] MEDS ORDERED: Metoprolol Tartrate 5 MG/5 ML SDV IVPUSH ONE (10:29)
[2018-05-28] MEDS ORDERED: Lactulose Soln 10 GM/15 ML 30 ML UD Cup PO ONE (10:30)
[2018-05-28 10:41] VITALS: BP 187/133
--- NOTE | 2018-05-28 10:50 | EDM.PDOC ---
<Gavi Lazaro - Last Filed: 05/28/18 13:28> ED HPI GENERAL MEDICAL PROBLEM - General Chief Complaint: Respiratory Problem Stated Complaint: SOB Time Seen by Provider: 05/28/18 10:06 Source of Information: Reports: Patient History Limitations: Reports: No Limitations - History of Present Illness INITIAL COMMENTS - FREE TEXT/NARRATIVE: 47 y/o male presents to the ER with cc SOB. He reports he has been SOB for the past couple weeks. He was recently was discharge from the hospital with A-Fib with RVR and CHF. He denies chest pain or palpitations. He states he can't lay flat and walk 30 feet without getting SOB. He states he is can breath better when he is sitting up. He states he is not able to take a hot shower because the steam makes him feel like he can't breath. He has had no significant swelling of lower extremities. He denies fever or chills. He does report not having a BM in 8 days and today he reports having diarrhea. He denies any abdominal pain, nausea or vomiting. He reports living alone. He states he want to be treated but "he can't stay in the hospital because he has a dog at home and no one to care for him. " The patient denies any recreational drug use and states he hasn't had any alcohol in 10 days. Here in the ED, the patient is found to be tachycardic at around 130 bpm. 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 He has a history of atrial fibrillation. He has a history of hypertension, he did take his Toprol- XL prior to arrival. The patient's PCP is Raheem Villa The patient sees Dr. Carpenter for evaluation for iron deficiency. Onset Date: 05/12/18 Onset Time: 12:00 Duration: Getting Worse Location: Reports: Chest, Generalized Severity: Mild Improves with: Reports: Rest Worsens with: Reports: Movement Associated Symptoms: Reports: Cough, Shortness of Breath, Weakness. 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 Treatments - Related Data Allergies Allergy/AdvReac Type Severity Reaction Status Date / Time No Known Allergies Allergy Verified 05/21/18 15:55 Home Meds: Home Meds Lisinopril 40 mg PO DAILY 09/17/16 [History] Allopurinol [Zyloprim] 300 mg PO DAILY 01/04/18 [History] Iron,Carbonyl [Ferretts] 1 tab PO DAILY 01/04/18 [History] Apixaban [Eliquis] 5 mg PO BID #60 tablet 05/23/18 [Rx] Diltiazem [Cardizem CD] 120 mg PO DAILY #30 cap.cd 05/23/18 [Rx] Metoprolol Tartrate [Lopressor] 100 mg PO Q12HR #60 tablet 05/23/18 [Rx] Furosemide [Lasix] 20 mg PO DAILY 45 Days #60 tab 05/28/18 [Rx] Potassium Chloride 20 meq PO DAILY 45 Days #60 tablet.er 05/28/18 [Rx] Past Medical History HEENT History: Reports: Other (See Below) Cardiovascular History: Reports: Afib, Hypertension Gastrointestinal History: Reports: Other (See Below) Other Gastrointestinal History: hernia repair 2013 Musculoskeletal History: Reports: Gout Other Musculoskeletal History: weakness Psychiatric History: Reports: Addiction Endocrine/Metabolic History: Reports: Obesity/BMI 30+ Hematologic History: Reports: Iron Deficiency Dermatologic History: Reports: Eczema - Past Surgical History GI Surgical History: Reports: Hernia, Abdominal Social & Family History - Family History Family Medical History: Noncontributory - Tobacco Use Smoking Status *Q: Never Smoker Second Hand Smoke Exposure: No - Caffeine Use Caffeine Use: Reports: Energy Drinks - Alcohol Use Days Per Week of Alcohol Use: 2 Number of Drinks Per Day: 12 Total Drinks Per Week: 24 - Recreational Drug Use Recreational Drug Use: Yes Drug Use in Last 12 Months: No Recreational Drug Type: Reports: Marijuana/Hashish Recreational Drug Use Frequency: Daily - Living Situation & Occupation Living situation: Reports: , Alone Occupation: Unemployed ED ROS GENERAL - Review of Systems Review Of Systems: See Below Constitutional: Reports: Decreased Appetite. Denies: Fever, Chills HEENT: Reports: No Symptoms Respiratory: Reports: Shortness of Breath. Denies: Pleuritic Chest Pain Cardiovascular: Reports: Dyspnea on Exertion. Denies: Chest Pain, Edema, Palpitations, Syncope Endocrine: Reports: No Symptoms GI/Abdominal: Reports: Constipation, Diarrhea : Reports: No Symptoms Musculoskeletal: Reports: No Symptoms Skin: Reports: No Symptoms Neurological: Reports: No Symptoms Psychiatric: Reports: No Symptoms Hematologic/Lymphatic: Reports: No Symptoms Immunologic: Reports: No Symptoms ED EXAM, GENERAL - Physical Exam Exam: See Below Exam Limited By: No Limitations General Appearance: Alert, WD/WN, No Apparent Distress Ears: Normal External Exam, Normal Canal, Hearing Grossly Normal, Normal TMs Nose: Normal Inspection, Normal Mucosa, No Blood Throat/Mouth: Normal Inspection, Normal Lips, Normal Teeth, Normal Gums, Normal Oropharynx, Normal Voice, No Airway Compromise Head: Atraumatic, Normocephalic Neck: Normal Inspection, Supple, Non-Tender, Full Range of Motion Respiratory/Chest: No Respiratory Distress, Lungs Clear, Normal Breath Sounds, No Accessory Muscle Use, Chest Non-Tender Cardiovascular: Normal Peripheral Pulses, No Edema, No Gallop, No JVD, No Murmur , No Rub, Tachycardia, Irregularly Irregular GI/Abdominal: Normal Bowel Sounds, Soft, Non-Tender, No Organomegaly, No Distention, No Abnormal Bruit, No Mass, Pelvis Stable Back Exam: Normal Inspection, Full Range of Motion Extremities: Normal Inspection, Normal Range of Motion, Non-Tender, No Pedal Edema, Normal Capillary Refill Neurological: Alert, Oriented, Normal Cognition, Normal Gait, Normal Reflexes Psychiatric: Normal Affect, Normal Mood Skin Exam: Warm, Dry, Intact, Normal Color, No Rash Lymphatic: No Adenopathy EKG INTERPRETATION EKG Date: 05/28/18 Time: 10:20 Rhythm: A-Fib Rate (Beats/Min): 106 Course - Vital Signs Last Recorded V/S: Last Vital Signs Temp 36.7 C 05/28/18 10:09 Pulse 98 05/28/18 10:40 Resp 22 H 05/28/18 10:09 BP 187/133 H 05/28/18 10:40 Pulse Ox 96 05/28/18 10:09 - Orders/Labs/Meds Orders: Active Orders 24 hr Category Date Time Status EKG Documentation Completion [RC] STAT Care 05/28/18 10:07 Active Enema [RC] ASDIRECTED Care 05/28/18 11:44 Active Saline Lock Insert [OM.PC] Routine Oth 05/28/18 10:08 Ordered Labs: Laboratory Tests 05/28/18 05/28/18 05/28/18 Range/Units 10:40 10:40 10:40 WBC 8.44 (4.23-9.07) K/mm3 RBC 4.80 (4.63-6.08) M/mm3 Hgb 12.3 L (13.7-17.5) gm/L Hct 39.3 L (40.1-51.0) % MCV 81.9 (79.0-92.2) fl MCH 25.6 L (25.7-32.2) pg MCHC 31.3 L (32.2-35.5) g/dl RDW Std Deviation 52.4 H (35.1-43.9) fL Plt Count 166 (163-337) K/mm3 MPV 9.7 (9.4-12.3) fl Neut % (Auto) 73.6 H (34.0-67.9) % Lymph % (Auto) 15.5 L (21.8-53.1) % [place] % (Auto) 9.0 (5.3-12.2) % Eos % (Auto) 1.3 (0.8-7.0) Baso % (Auto) 0.4 (0.1-1.2) % Neut # (Auto) 6.21 H (1.78-5.38) K/mm3 Lymph # (Auto) 1.31 L (1.32-3.57) K/mm3 [place] # (Auto) 0.76 (0.30-0.82) K/mm3 Eos # (Auto) 0.11 (0.04-0.54) K/mm3 Baso # (Auto) 0.03 (0.01-0.08) K/mm3 Sodium 138 (136-145) mEq/L Potassium 3.9 (3.5-5.1) mEq/L Chloride 105 (98-107) mEq/L Carbon Dioxide 24 (21-32) mEq/L Anion Gap 12.9 (5-15) BUN 20 H (7-18) mg/dL Creatinine 1.3 (0.7-1.3) mg/dL Est Cr Clr Drug Dosing 76.27 mL/min Estimated GFR (MDRD) 59 (>60) mL/min BUN/Creatinine Ratio 15.4 (14-18) Glucose 104 (74-106) mg/dL Calcium 8.9 (8.5-10.1) mg/dL Total Bilirubin 0.7 (0.2-1.0) mg/dL AST 24 (15-37) U/L ALT 53 (16-63) U/L Alkaline Phosphatase 96 (46-116) U/L Troponin I < 0.017 (0.00-0.056) ng/mL NT-Pro-B Natriuret Pep 4806 H (0-125) pg/mL Total Protein 6.9 (6.4-8.2) g/dl Albumin 3.0 L (3.4-5.0) g/dl Globulin 3.9 gm/dL Albumin/Globulin Ratio 0.8 L (1-2) Meds: Medications Discontinued Medications Generic Name Dose Route Start Last Admin Trade Name Freq PRN Reason Stop Dose Admin Furosemide 40 mg 05/28/18 11:25 05/28/18 11:53 Lasix IVPUSH 05/28/18 11:26 40 mg NOW ONE Administration Lactulose 20 gm 05/28/18 10:30 05/28/18 10:40 Cephulac PO 05/28/18 10:31 20 gm ONETIME ONE Administration Metoprolol Tartrate 5 mg 05/28/18 10:29 05/28/18 10:40 Lopressor IVPUSH 05/28/18 10:30 5 mg ONETIME ONE Administration Sodium Chloride 10 ml 05/28/18 10:08 05/28/18 10:41 Saline Flush FLUSH 10 ml ASDIRECTED PRN Administration Keep Vein Open - Re-Assessments/Exams Free Text/Narrative Re-Assessment/Exam: 05/28/18 11:46 B/P 159/109 after receiving Lopressor 5 mg IVP. 05/28/18 13:11 His chest x-ray revealed mild vacular congestion. Pulmonary vessels are slightly increased which appear chronic. Heart is mildly enlarged. Kub revealed surgical material within the abdomen. Bowel gas pattern is normal. WBC 12.3 H & H 12.3/39.3 BUN 20 creatine 1.3 GFR 59, BNP 4806. He received IV Lasix and his condition improved. I will discharge home with instructions to follow up with his PCP for referral for drywall hanger helper. He needs further evaluation and echocardiogram to evaluate his EF. I will discharge home with Lasix and K-Dur. I instructed the patient to weigh himself daily and if he had an increase in weight 3 lbs or greater to take a extra Lasix and K-Dur that day. I instructed the patient about low fat, low salt diet. I discussed the disease process CHF and emphasized the importance of following medication regiment and the need to be evaluated by a drywall hanger helper. Patient verbalized understanding and is comfortable with plan for discharge. Instructed to return to the ER for any new or acute worsening symptoms. Patient is stable at time of discharge. Departure - Departure Time of Disposition: 13:19 Disposition: Home, Self-Care 01 Condition: Good Clinical Impression: Congenital heart disease in adult - Discharge Information Prescriptions: Furosemide [Lasix] 20 mg PO DAILY 45 Days #60 tab Potassium Chloride 20 meq PO DAILY 45 Days #60 tablet.er Instructions: Shortness of Breath, Adult, [id number], DASH Eating Plan, Constipation, Adult, Heart Failure, [id number], Preventing Heart Failure Referrals: Tash George MD [Primary Care Provider] - Forms: ED Department Discharge Additional Instructions: you have been diagnosis with congestive heart failure, constipation and hypertension. Your EKG revealed a -fib. Continue taking your heart medications as prescribed. You are being discharged home with Lasix and K-Dur. You need to weigh yourself daily. If you have a weight gain of 3 lbs or more you need to take a extra Lasix and K-Dur that day. I recommend you record you weight daily and take it to your PCP office for evaluation. Follow up with your PCP to get a referral to a drywall hanger helper. You need a echocardiogram to evaluate your hear function. Please follow the low fat low salt diet. Return to the ER for any new or acute worsening symptoms. <Ponce Hook - Last Filed: 05/28/18 20:50> Course - Re-Assessments/Exams Free Text/Narrative Re-Assessment/Exam: 05/28/18 20:48 Case reviewed with Gavi Lazaro NP. I agree with her evaluation and plan of care.
[2018-05-28] MEDS ORDERED: Furosemide 40 MG/4 ML VIAL IVPUSH ONE (11:25)
--- NOTE | 2018-05-28 12:34 | CR ---
Chest: PA and lateral views of the chest are obtained. Comparison: Prior chest x-ray of 05/22/18. Pulmonary vessels are slightly increased which appear chronic. Heart is mildly enlarged. Tortuous thoracic aorta is seen. Overlying monitor leads are noted. Bony structures appear within normal limits for the patient's age. Impression: 1. Findings as noted above believed to be stable. Nothing acute is suspected. Diagnostic code #2
--- NOTE | 2018-05-28 12:34 | CR ---
Abdomen: Supine view of the abdomen was obtained. Surgical material is seen within the abdomen. Bowel gas pattern is normal. Scoliosis and mild degenerative change is seen within the spine. No abnormal calcifications or soft tissue abnormality is seen. Impression: 1. Incidental findings. Nothing acute is seen on supine abdominal x-ray. Diagnostic code #2
== END 2018-05-28 13:38 | disposition home or self-care (01) ==
LOC: JD.ED 09:58
DX: Q24.9 Congenital malformation of heart, unspecified (principal); E66.9 Obesity, unspecified; I10 Essential (primary) hypertension; Z79.899 Other long term (current) drug therapy
CPT/HCPCS: 36415; 71046; 74018; 80053; 83880; 84484; 85025; 93005; 96374; 96375; 99285; A9270; J1940; J3490; 93010; 99284

== ENCOUNTER 2018-08-05 18:58 | Emergency (ER) | payer BC, OTHER ==
[~2018-08-05 18:58] MED LIST: 50% Dextrose in Water 50 ML SDV ONE; Amiodarone/Dextrose,Iso-Osmotic 150 MG/100 ML Premix Bag IV ONE; Amiodarone/Dextrose,Iso-Osmotic 360 MG/200 ML Premix Bag ONE; Diltiazem 100 MG AdvVial ONE; Diltiazem 50 MG/10 ML SDV ONE; Ketamine 500 mg/10 ML MDV ONE; Lidocaine 1% 10 ML MDV ONE; Midazolam 1 MG/ML 5 ML SDV ONE; Naloxone 0.4 MG/ML SDV ONE; Phenylephrine 1% 10 MG/ML SDV ONE; Propofol 200 MG/20 ML SDV ONE; Rocuronium 100 MG/10 ML MDV ONE; Rocuronium 50 MG/5 ML Vial ONE; Succinylcholine 200 MG/10 ML MDV ONE; ceFAZolin 1 GM Vial ONE
[2018-08-05] MEDS ORDERED: Diltiazem 125 MG/25 ML SDV ONE (19:11)
[2018-08-05] MEDS ORDERED: Sodium Chloride 0.9% 100 ML ONE (19:12)
[2018-08-05] MEDS ORDERED: Diltiazem 125 MG in Sodium Chloride 0.9% 100 ML IV SCH (19:15)
[2018-08-05] MEDS ORDERED: Diltiazem 50 MG/10 ML SDV ONE (19:17)
[2018-08-05 19:23] VITALS: BP 163/126
[2018-08-05] MEDS ORDERED: LORazepam 2 MG/ML SDV ONE (19:40)
--- NOTE | 2018-08-05 19:49 | EDM.PDOC ---
ED HPI GENERAL MEDICAL PROBLEM - General Chief Complaint: Cardiovascular Problem Stated Complaint: [facility] Time Seen by Provider: 08/05/18 18:58 - History of Present Illness INITIAL COMMENTS - FREE TEXT/NARRATIVE: 48-year-old male brought into the emergency room by EMS. For the most part patient is minimally responsive unable to give a history of what happened patient was found down the time down is unknown. There was a broken mirror where he was found and he has a cut on the bottom of his right foot. The patient was seen in this hospital approximately a month ago found to have atrial fibrillation signed out AMA. The situation around tonight is not well understood. Patient was brought in by EMS found to be in atrial fibrillation rapid ventricular response. 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 - Related Data Allergies Allergy/AdvReac Type Severity Reaction Status Date / Time No Known Allergies Allergy Verified 08/05/18 19:23 Home Meds: Home Meds Lisinopril 40 mg PO DAILY 09/17/16 [History] Allopurinol [Zyloprim] 300 mg PO DAILY 01/04/18 [History] Iron,Carbonyl [Ferretts] 1 tab PO DAILY 01/04/18 [History] Apixaban [Eliquis] 5 mg PO BID #60 tablet 05/23/18 [Rx] Diltiazem [Cardizem CD] 120 mg PO DAILY #30 cap.cd 05/23/18 [Rx] Metoprolol Tartrate [Lopressor] 100 mg PO Q12HR #60 tablet 05/23/18 [Rx] Furosemide [Lasix] 20 mg PO DAILY 45 Days #60 tab 05/28/18 [Rx] Potassium Chloride 20 meq PO DAILY 45 Days #60 tablet.er 05/28/18 [Rx] Past Medical History HEENT History: Reports: Other (See Below) Cardiovascular History: Reports: Afib, Heart Failure, Hypertension Gastrointestinal History: Reports: Other (See Below) Other Gastrointestinal History: hernia repair 2013 Musculoskeletal History: Reports: Gout Other Musculoskeletal History: weakness Psychiatric History: Reports: Addiction Endocrine/Metabolic History: Reports: Obesity/BMI 30+ Hematologic History: Reports: Iron Deficiency Dermatologic History: Reports: Eczema - Past Surgical History GI Surgical History: Reports: Hernia, Abdominal Social & Family History - Family History Family Medical History: Noncontributory - Caffeine Use Caffeine Use: Reports: Energy Drinks - Living Situation & Occupation Living situation: Reports: , Alone Occupation: Unemployed ED ROS GENERAL - Review of Systems Review Of Systems: Unable To Obtain ED EXAM, GENERAL - Physical Exam Exam: See Below Exam Limited By: Altered Mental Status General Appearance: Other (Tachycardic obviously A. fib vitals otherwise stable initially hypertensive) Eye Exam: Bilateral Eye: PERRL Ears: Normal External Exam, Normal Canal, Normal TMs Nose: Normal Inspection, Normal Mucosa Throat/Mouth: Normal Inspection, Normal Lips, Normal Teeth, Other (To my dry mucosa) Head: Atraumatic, Normocephalic Neck: Normal Inspection, Supple, Non-Tender. No: Lymphadenopathy (L), Lymphadenopathy (R) Respiratory/Chest: No Respiratory Distress, Lungs Clear, Normal Breath Sounds Cardiovascular: Tachycardia, Irregularly Irregular GI/Abdominal: Normal Bowel Sounds, No Distention, Other (Morbid obesity) (Male) Exam: No Hernia Rectal (Males) Exam: Normal Exam Back Exam: Normal Inspection Extremities: Normal Inspection, Normal Range of Motion, Non-Tender Psychiatric: Normal Affect Skin Exam: Warm, Dry Lymphatic: No Adenopathy Course - Vital Signs Last Recorded V/S: Last Vital Signs Temp 37.1 C 08/05/18 19:17 Pulse 167 H 08/05/18 19:17 Resp 15 08/05/18 19:17 BP 163/126 H 08/05/18 19:17 Pulse Ox 100 08/05/18 19:17 - Orders/Labs/Meds Orders: Active Orders 24 hr Category Date Time Status EKG Documentation Completion [RC] ASDIRECTED Care 08/05/18 19:39 Active RASS Sedation Scale [RC] ASDIRECTED Care 08/05/18 22:53 Active RT Ventilator ED, Adult [RC] ASDIRECTED Care 08/05/18 21:00 Active Vaccines to be Administered [RC] PER UNIT ROUTINE Care 08/05/18 21:23 Active Chest 1V Frontal [CR] Stat Exams 08/05/18 20:36 Taken Head wo Cont [CT] Stat Exams 08/05/18 19:30 Taken EKG 12 Lead [EK] Stat Ther 08/05/18 19:39 Ordered Labs: Laboratory Tests 08/05/18 08/05/18 08/05/18 Range/Units 19:12 19:12 19:12 WBC 15.23 H (4.23-9.07) K/mm3 RBC 5.16 (4.63-6.08) M/mm3 Hgb 13.7 (13.7-17.5) gm/L Hct 42.1 (40.1-51.0) % MCV 81.6 (79.0-92.2) fl MCH 26.6 (25.7-32.2) pg MCHC 32.5 (32.2-35.5) g/dl RDW Std Deviation 54.6 H (35.1-43.9) fL Plt Count 261 D (163-337) K/mm3 MPV 9.7 (9.4-12.3) fl Neut % (Auto) 80.2 H (34.0-67.9) % Lymph % (Auto) 8.4 L (21.8-53.1) % Maury % (Auto) 10.5 (5.3-12.2) % Eos % (Auto) 0.4 L (0.8-7.0) Baso % (Auto) 0.2 (0.1-1.2) % Neut # (Auto) 12.22 H (1.78-5.38) K/mm3 Lymph # (Auto) 1.28 L (1.32-3.57) K/mm3 Maury # (Auto) 1.60 H (0.30-0.82) K/mm3 Eos # (Auto) 0.06 (0.04-0.54) K/mm3 Baso # (Auto) 0.03 (0.01-0.08) K/mm3 Manual Slide Review Normal smear PT 12.1 (9.5-12.1) SECONDS INR 1.11 APTT 22 L (24-31) SECONDS Puncture Site ABG pH (7.35-7.45) ABG pCO2 (35.0-45.0) mmHg ABG pO2 (80.0-100.0) mmHg ABG HCO3 (22.0-26.0) meq/L ABG O2 Saturation (96.0-97.0) % ABG Base Excess (-2-2.0) A-a Gradient mmHg O2 Delivery Device Oxygen Flow Rate FiO2 (21.00-100.00) % Sodium 148 H D (136-145) mEq/L Potassium 4.0 (3.5-5.1) mEq/L Chloride 110 H (98-107) mEq/L Carbon Dioxide 18 L (21-32) mEq/L Anion Gap 24.0 H (5-15) BUN 27 H (7-18) mg/dL Creatinine 1.3 (0.7-1.3) mg/dL Est Cr Clr Drug Dosing TNP Estimated GFR (MDRD) 59 (>60) mL/min BUN/Creatinine Ratio 20.8 H (14-18) Glucose 120 H (74-106) mg/dL POC Glucose (70-105) mg/dL Calcium 9.4 (8.5-10.1) mg/dL Magnesium (1.8-2.4) mg/dl Total Bilirubin 1.5 H (0.2-1.0) mg/dL AST 55 H (15-37) U/L ALT 48 (16-63) U/L Alkaline Phosphatase 92 (46-116) U/L Troponin I (0.00-0.056) ng/mL Total Protein 7.9 (6.4-8.2) g/dl Albumin 3.4 (3.4-5.0) g/dl Globulin 4.5 gm/dL Albumin/Globulin Ratio 0.8 L (1-2) TSH 3rd Generation 1.348 (0.358-3.74) uIU/mL Urine Color (Yellow) Urine Appearance (Clear) Urine pH (5.0-8.0) Ur Specific Spencer (1.005-1.030) Urine Protein (Negative) Urine Glucose (UA) (Negative) Urine Ketones (Negative) Urine Occult Blood (Negative) Urine Nitrite (Negative) Urine Bilirubin (Negative) Urine Urobilinogen (0.2-1.0) Ur Leukocyte Esterase (Negative) Urine RBC (0-5) /hpf Urine WBC (0-5) /hpf Ur Squamous Epith Cells (0-5) /hpf Urine Bacteria (FEW) /hpf Hyaline Casts (0-5) /lpf Urine Mucus (FEW) /hpf Urine Opiates Screen (PQUMDH=839) Ur Buprenorphine Scrn (CUTOFF=10) Ur Oxycodone Screen (JNK5PY=641) Urine Methadone Screen (VXM7VT=945) Ur Propoxyphene Screen (KQJYGZ=530) Ur Barbiturates Screen (NIPBOB=407) Ur Tricyclics Screen (RCRGRF=552) Ur Phencyclidine Scrn (CUTOFF=25) Ur Amphetamine Screen (CYJZSN=307) U Methamphetamines Scrn (SASEYI=992) U Benzodiazepines Scrn (JHIVGT=278) U Cocaine Metab Screen (HKIMEW=153) U Marijuana (THC) Screen (CUTOFF=50) Ethyl Alcohol 0.00 (0.00) gm% 08/05/18 08/05/18 08/05/18 Range/Units 19:12 19:12 19:30 WBC (4.23-9.07) K/mm3 RBC (4.63-6.08) M/mm3 Hgb (13.7-17.5) gm/L Hct (40.1-51.0) % MCV (79.0-92.2) fl MCH (25.7-32.2) pg MCHC (32.2-35.5) g/dl RDW Std Deviation (35.1-43.9) fL Plt Count (163-337) K/mm3 MPV (9.4-12.3) fl Neut % (Auto) (34.0-67.9) % Lymph % (Auto) (21.8-53.1) % Maury % (Auto) (5.3-12.2) % Eos % (Auto) (0.8-7.0) Baso % (Auto) (0.1-1.2) % Neut # (Auto) (1.78-5.38) K/mm3 Lymph # (Auto) (1.32-3.57) K/mm3 Maury # (Auto) (0.30-0.82) K/mm3 Eos # (Auto) (0.04-0.54) K/mm3 Baso # (Auto) (0.01-0.08) K/mm3 Manual Slide Review PT (9.5-12.1) SECONDS INR APTT (24-31) SECONDS Puncture Site ABG pH (7.35-7.45) ABG pCO2 (35.0-45.0) mmHg ABG pO2 (80.0-100.0) mmHg ABG HCO3 (22.0-26.0) meq/L ABG O2 Saturation (96.0-97.0) % ABG Base Excess (-2-2.0) A-a Gradient mmHg O2 Delivery Device Oxygen Flow Rate FiO2 (21.00-100.00) % Sodium (136-145) mEq/L Potassium (3.5-5.1) mEq/L Chloride (98-107) mEq/L Carbon Dioxide (21-32) mEq/L Anion Gap (5-15) BUN (7-18) mg/dL Creatinine (0.7-1.3) mg/dL Est Cr Clr Drug Dosing Estimated GFR (MDRD) (>60) mL/min BUN/Creatinine Ratio (14-18) Glucose (74-106) mg/dL POC Glucose (70-105) mg/dL Calcium (8.5-10.1) mg/dL Magnesium 2.0 (1.8-2.4) mg/dl Total Bilirubin (0.2-1.0) mg/dL AST (15-37) U/L ALT (16-63) U/L Alkaline Phosphatase (46-116) U/L Troponin I 0.028 (0.00-0.056) ng/mL Total Protein (6.4-8.2) g/dl Albumin (3.4-5.0) g/dl Globulin gm/dL Albumin/Globulin Ratio (1-2) TSH 3rd Generation (0.358-3.74) uIU/mL Urine Color Yellow (Yellow) Urine Appearance Slt cloudy H (Clear) Urine pH 6.0 (5.0-8.0) Ur Specific Spencer > or = 1.030 (1.005-1.030) Urine Protein 3+ H (Negative) Urine Glucose (UA) Negative (Negative) Urine Ketones 1+ H (Negative) Urine Occult Blood 2+ H (Negative) Urine Nitrite Negative (Negative) Urine Bilirubin 2+ H (Negative) Urine Urobilinogen 1.0 (0.2-1.0) Ur Leukocyte Esterase Negative (Negative) Urine RBC 0-5 (0-5) /hpf Urine WBC 0-5 (0-5) /hpf Ur Squamous Epith Cells 0-5 (0-5) /hpf Urine Bacteria Few (FEW) /hpf Hyaline Casts 5-10 H (0-5) /lpf Urine Mucus Moderate H (FEW) /hpf Urine Opiates Screen Negative (EMMJZA=548) Ur Buprenorphine Scrn Negative (CUTOFF=10) Ur Oxycodone Screen Negative (JKV8EK=021) Urine Methadone Screen Negative (LVA3MY=094) Ur Propoxyphene Screen Negative (GLHGBH=433) Ur Barbiturates Screen Negative (JCDIYZ=329) Ur Tricyclics Screen Negative (LPKIMM=628) Ur Phencyclidine Scrn Negative (CUTOFF=25) Ur Amphetamine Screen Presumptive positive H (XAPNFT=916) U Methamphetamines Scrn Presumptive positive H (PNFYVH=821) U Benzodiazepines Scrn Negative (TOVIFA=978) U Cocaine Metab Screen Negative (FBVSLK=623) U Marijuana (THC) Screen Negative (CUTOFF=50) Ethyl Alcohol (0.00) gm% 08/05/18 08/05/18 Range/Units 19:34 19:45 WBC (4.23-9.07) K/mm3 RBC (4.63-6.08) M/mm3 Hgb (13.7-17.5) gm/L Hct (40.1-51.0) % MCV (79.0-92.2) fl MCH (25.7-32.2) pg MCHC (32.2-35.5) g/dl RDW Std Deviation (35.1-43.9) fL Plt Count (163-337) K/mm3 MPV (9.4-12.3) fl Neut % (Auto) (34.0-67.9) % Lymph % (Auto) (21.8-53.1) % Maury % (Auto) (5.3-12.2) % Eos % (Auto) (0.8-7.0) Baso % (Auto) (0.1-1.2) % Neut # (Auto) (1.78-5.38) K/mm3 Lymph # (Auto) (1.32-3.57) K/mm3 Maury # (Auto) (0.30-0.82) K/mm3 Eos # (Auto) (0.04-0.54) K/mm3 Baso # (Auto) (0.01-0.08) K/mm3 Manual Slide Review PT (9.5-12.1) SECONDS INR APTT (24-31) SECONDS Puncture Site Lt radial ABG pH 7.31 L (7.35-7.45) ABG pCO2 39.1 (35.0-45.0) mmHg ABG pO2 249.0 H* (80.0-100.0) mmHg ABG HCO3 19.1 L (22.0-26.0) meq/L ABG O2 Saturation 99.9 H (96.0-97.0) % ABG Base Excess -6.2 L (-2-2.0) A-a Gradient 343 mmHg O2 Delivery Device Nrb mask Oxygen Flow Rate 15.0 FiO2 100.00 (21.00-100.00) % Sodium (136-145) mEq/L Potassium (3.5-5.1) mEq/L Chloride (98-107) mEq/L Carbon Dioxide (21-32) mEq/L Anion Gap (5-15) BUN (7-18) mg/dL Creatinine (0.7-1.3) mg/dL Est Cr Clr Drug Dosing Estimated GFR (MDRD) (>60) mL/min BUN/Creatinine Ratio (14-18) Glucose (74-106) mg/dL POC Glucose 110 H (70-105) mg/dL Calcium (8.5-10.1) mg/dL Magnesium (1.8-2.4) mg/dl Total Bilirubin (0.2-1.0) mg/dL AST (15-37) U/L ALT (16-63) U/L Alkaline Phosphatase (46-116) U/L Troponin I (0.00-0.056) ng/mL Total Protein (6.4-8.2) g/dl Albumin (3.4-5.0) g/dl Globulin gm/dL Albumin/Globulin Ratio (1-2) TSH 3rd Generation (0.358-3.74) uIU/mL Urine Color (Yellow) Urine Appearance (Clear) Urine pH (5.0-8.0) Ur Specific Spencer (1.005-1.030) Urine Protein (Negative) Urine Glucose (UA) (Negative) Urine Ketones (Negative) Urine Occult Blood (Negative) Urine Nitrite (Negative) Urine Bilirubin (Negative) Urine Urobilinogen (0.2-1.0) Ur Leukocyte Esterase (Negative) Urine RBC (0-5) /hpf Urine WBC (0-5) /hpf Ur Squamous Epith Cells (0-5) /hpf Urine Bacteria (FEW) /hpf Hyaline Casts (0-5) /lpf Urine Mucus (FEW) /hpf Urine Opiates Screen (SFLPIV=289) Ur Buprenorphine Scrn (CUTOFF=10) Ur Oxycodone Screen (MSP7OX=134) Urine Methadone Screen (OFI4NW=257) Ur Propoxyphene Screen (NQIVCV=454) Ur Barbiturates Screen (BNXJKO=499) Ur Tricyclics Screen (VSZFTW=109) Ur Phencyclidine Scrn (CUTOFF=25) Ur Amphetamine Screen (HUYXUX=762) U Methamphetamines Scrn (XZQEXP=812) U Benzodiazepines Scrn (ALWQWX=810) U Cocaine Metab Screen (NNKNZJ=597) U Marijuana (THC) Screen (CUTOFF=50) Ethyl Alcohol (0.00) gm% Meds: Medications Discontinued Medications Generic Name Dose Route Start Last Admin Trade Name Freq PRN Reason Stop Dose Admin Diltiazem HCl Confirm 08/05/18 19:11 08/05/18 19:35 Diltiazem Administered 08/05/18 19:12 Not Given Dose 125 mg .ROUTE .STK-MED ONE Diltiazem HCl Confirm 08/05/18 19:17 08/05/18 21:24 Cardizem Administered 08/05/18 19:18 Not Given Dose 50 mg .ROUTE .STK-MED ONE Diphtheria/Tetanus/Acell Pertussis 0.5 ml 08/05/18 21:22 Adacel IM 08/05/18 21:23 .ONCE ONE Diltiazem HCl 125 mg/ Sodium 125 mls @ 5 mls/hr 08/05/18 19:15 Chloride IV TITRATE RAVINDER Protocol 5 MG/HR Sodium Chloride Confirm 08/05/18 19:12 08/05/18 19:34 Normal Saline Administered 08/05/18 19:13 Not Given Dose 100 mls @ as directed .ROUTE .STK-MED ONE Midazolam HCl 50 mg/ Sodium 50 mls @ 0.5 mls/hr 08/05/18 21:45 Chloride IV TITRATE RAVINDER 0.5 MG/HR Cefazolin Sodium/Dextrose 1 gm 50 mls @ 100 mls/hr 08/05/18 21:38 / Premix IV 08/05/18 22:07 ONETIME ONE Lactated Ringer's Confirm 08/05/18 22:13 Ringers, Lactated Administered 08/05/18 22:14 Dose 1,000 mls @ as directed .ROUTE .STK-MED ONE Lidocaine HCl 20 ml 08/05/18 21:38 Xylocaine 1% INJECT 08/05/18 21:39 ONETIME ONE Lidocaine HCl Confirm 08/05/18 21:43 Xylocaine 1% Administered 08/05/18 21:44 Dose 20 ml .ROUTE .STK-MED ONE Lorazepam Confirm 08/05/18 19:40 08/05/18 21:24 Ativan Administered 08/05/18 19:41 Not Given Dose 4 mg .ROUTE .STK-MED ONE - Re-Assessments/Exams Free Text/Narrative Re-Assessment/Exam: 08/05/18 22:18 Initially the patient was thought to be extremely was [id number] atrial fibrillation with rapid rate initially resuscitation focused on getting him out of that he was started on some diltiazem in the ambulance we will attempt cardioversion 2 here without any success started giving him fluids and expanding are workup. The case was discussed with Dr. Rios cardiology at [facility] in [place] who agreed with the workup recommended intubation before transfer this was done as patient needed good head CT anyway and then start him on amiodarone this was done and really the patient did not have any improvement with his A. fib with RVR we continued fluid resuscitation after intubation his blood pressure dropped a few times he received a couple doses of phenylephrine to bring his blood pressure back up his urine output has not been impressive. I discussed the patient's case withDr. Edward the game moderator [facility] in [place] who is willing to accept the patient transfer continuing to give generous fluids. After my discussion with him initially I did get called from the radiologist the red his CAT scan shows what looks like a subacute stroke in the left MCA distribution. 08/06/18 03:27 Critical care time 1 hour 45 minutes direct patient contract records review arranging transfer and discussing with consultants Departure - Departure Time of Disposition: 22:22 Disposition: DC/Tfer to Acute Hospital 02 Reason for Transfer *Q: Other Clinical Impression: CVA (cerebral vascular accident), Atrial fibrillation with RVR Referrals: PCP,None [Primary Care Provider] - Forms: ED Department Discharge - My Orders Last 24 Hours: My Active Orders 08/05/18 19:30 Head wo Cont [CT] Stat 08/05/18 19:39 EKG Documentation Completion [RC] ASDIRECTED EKG 12 Lead [EK] Stat 08/05/18 20:36 Chest 1V Frontal [CR] Stat 08/05/18 21:00 RT Ventilator ED, Adult [RC] ASDIRECTED 08/05/18 21:23 Vaccines to be Administered [RC] PER UNIT ROUTINE 08/05/18 22:53 RASS Sedation Scale [RC] ASDIRECTED - Assessment/Plan Last 24 Hours: My Active Orders 08/05/18 19:30 Head wo Cont [CT] Stat 08/05/18 19:39 EKG Documentation Completion [RC] ASDIRECTED EKG 12 Lead [EK] Stat 08/05/18 20:36 Chest 1V Frontal [CR] Stat 08/05/18 21:00 RT Ventilator ED, Adult [RC] ASDIRECTED 08/05/18 21:23 Vaccines to be Administered [RC] PER UNIT ROUTINE 08/05/18 22:53 RASS Sedation Scale [RC] ASDIRECTED
[2018-08-05] MEDS ORDERED: Diphtheria,Pertussis(Acell),Tetanus Vaccine 0.5 ML Syringe IM ONE (21:22)
[2018-08-05] MEDS ORDERED: Lidocaine 1% 20 ML MDV INJECT ONE (21:38)
[2018-08-05] MEDS ORDERED: ceFAZolin 1 GM in Premix Bag 1 BAG IV ONE (21:38)
[2018-08-05] MEDS ORDERED: Lidocaine 1% 10 ML MDV ONE (21:43)
[2018-08-05] MEDS ORDERED: Midazolam 50 MG in Sodium Chloride 0.9% 40 ML IV SCH (21:45)
[2018-08-05] MEDS ORDERED: Lactated Ringers 1,000 ML ONE (22:13)
--- NOTE | 2018-08-05 23:37 | PCM.SN ---
- Free Text/Narrative Note: Called to ER for assistance with intubation. On arrival patient was bag mask ventilated with 2 providers. Glidescope intubation had been attempted with visualization of the vocal cords but the Ett could not be placed. Intubation medications drawn Versed 4 mg, Propofol 100 mg, Succinylcholine 120 mg IVP. Glidescope #4 placed, 8.0 Ett placed with good visualization, ETCO2 color change noted, BBS (coarse/crackles/rhonci noted). Ett tapped at 23 cm at the teeth with tube walsh. CXR to confirm placement per ER provider. Ett suction per RT, lots of secretions noted from Ett. Lung sounds remain unchanged. Ronel Garvin, COMPTOMETER OPERATOR
--- NOTE | 2018-08-06 09:00 | CT ---
Head CT Technique: Multiple axial sections through the brain were obtained. Intravenous contrast was not utilized. Comparison: No prior intracranial imaging. Findings: Diffuse low density is seen within the left temporal and left parietal regions. This is compatible with previous infarct within a portion of the left middle cerebral artery. This causes associated effacement of the sulci over the convexities and minimal mass effect upon the lateral ventricle on the left side. Mild motion artifact is seen. No additional abnormal parenchymal density is seen. Bone window settings were reviewed which show mild mucosal thickening within the ethmoid sinuses. No acute calvarial abnormality is seen. Impression: 1. Findings compatible with probable subacute infarct within the left middle cerebral artery territory involving the left temporal and parietal regions. This finding causes mild mass effect. 2. No intracranial hemorrhage. 3. Mild mucosal thickening within the paranasal sinuses which I believe is incidental. Diagnostic code #5 I agree with preliminary report from [facility], finalized on 08/05/18, 10:35 PM Central Time
--- NOTE | 2018-08-06 09:00 | CR ---
Chest: Portable supine view of the chest was obtained. Comparison: Prior chest x-ray of 05/28/18. There are scattered areas of atelectasis noted within both lungs. Both lungs show poor inspiratory expansion. Heart size is accentuated from portable technique. Tortuous thoracic aorta is seen. Tip of endotracheal tube lies at the lower level of the clavicle in satisfactory position. Nasogastric tube courses into the stomach below the diaphragm. Bony structures are grossly intact. Impression: 1. Satisfactory position of endotracheal tube and nasogastric tube. 2. Scattered areas of atelectasis within both lungs. Poor inspiratory study. Diagnostic code #3 I agree with preliminary report from [facility], finalized on 08/05/18, 10:08 PM Central Time
== END 2018-08-05 22:50 ==
LOC: JD.ED 18:58
DX: I63.9 Cerebral infarction, unspecified (principal); I48.91 Unspecified atrial fibrillation; Z79.899 Other long term (current) drug therapy; I11.0 Hypertensive heart disease with heart failure; I50.9 Heart failure, unspecified; E66.9 Obesity, unspecified; Z79.01 Long term (current) use of anticoagulants
CPT/HCPCS: 31500; 36415; 36600; 51702; 70450; 71045; 80053; 80306; 81001; 82803; 82962; 83735; 84443; 84484; 85025; 85610; 85730; 92960; 93005; 96365; 96366; 96368; 96375; 96376; 99291; 99292; G0480; J0282; J0330; J0690; J2001; J2250; J2310; J2370; J2704; J3490; J7030; J7040; J7120